=== PATIENT | female | born 1995 | race Caucasian/White ===

== ENCOUNTER 2020-10-24 12:24 | Outpatient (CLI) | payer OTHER ==
--- NOTE | 2020-10-24 16:33 | Ultrasound Report ---
PROCEDURE: OB F/U or Repeat INDICATIONS: SCREENING, GESTATIONAL DIABETES OUTSIDE/PRIOR DATING DATA: Last menstrual period (LMP): 04/03/2020. LMP-based estimated date of delivery (PATY): 01/08/2021. First dating scan (date and location): Reportedly this study represents the third OB ultrasound but t he earlier 2 studies are not available for review. TECHNIQUE: Real-time scanning was performed of the fetus, with image documentation and biometric measurements. Endovaginal scanning: Not needed COMPARISON: Not available FINDINGS: General: A single living intrauterine gestation is present. Presentation: Vertex Placenta: Placental position is posterior, without previa. Amniotic fluid index: 14.4 cm, normal for gestational age. heart rate: 149 beats per minute. Maternal cervical canal: 4.7 cm long; normal length is 2.5 cm or more. biometrics: Biparietal diameter: 7.2 cm, 28 weeks 5 days Head circumference: 25.1 cm, 27 weeks 1 day Abdominal circumference: 23.2 cm, 27 weeks 4 days Femur length: 5.0 cm, 26 weeks 5 days Estimated gestational age from initial scan: 26 weeks 6 days, reportedly. Composite gestational age from present scan: 27 weeks 4 days Estimated weight and percentile: 1051 g, 55th percentile Measurement variability in biometric dating: +/- 10 days from 12-20 weeks gestation, +/- 2 weeks from 20-30 weeks gestation, +/- 3 weeks at 30 weeks gestation or more. Other: Not applicable. IMPRESSION: Lead to prior OB ultrasound studies have been performed for this , but the exam inations are not available for review. Current estimated weight is at the 55th percentile for r eported gestational age, normal amniotic fluid volume. Vertex presentation, posterior placenta, mater nal cervical length appears normal. Reviewed by: Lino Duckworth MD on 10/24/2020 4:32 PM PDT Approved by: Lino Duckworth MD on 10/24/2020 4:32 PM PDT Station ID: [id number]
== END 2020-10-24 12:25 | disposition home or self-care (01) ==
LOC: DI 12:24
PROVIDERS: ATTEND Obstetrics & Gynecology
DX: O24.410 Gestational diabetes mellitus in pregnancy, diet controlled (principal); Z36.89 Encounter for other specified antenatal screening; Z3A.27 27 weeks gestation of pregnancy

== ENCOUNTER 2020-11-04 08:00 | Outpatient (CLI) | payer OTHER | END 2020-11-04 23:59 | disposition home or self-care (01) | LOC: LAB.WC 08:00 | PROVIDERS: ATTEND Obstetrics & Gynecology | DX: R30.0 Dysuria (principal) | CPT/HCPCS: 87086 ==

== ENCOUNTER 2020-12-16 07:00 | Outpatient (CLI) | payer OTHER | END 2020-12-16 23:59 | disposition home or self-care (01) | LOC: LAB.R 07:00 | PROVIDERS: ATTEND Obstetrics & Gynecology | DX: O24.410 Gestational diabetes mellitus in pregnancy, diet controlled (principal); O09.93 Supervision of high risk pregnancy, unspecified, third trimester; Z36.85 Encounter for antenatal screening for Streptococcus B | CPT/HCPCS: 82731; 87797 ==

== ENCOUNTER 2020-12-16 10:17 | Outpatient (CLI) | payer OTHER ==
[2020-12-16 10:34] VITALS: BP 125/73
[2020-12-16] MEDS ORDERED: TERBUTALINE 1 MG/ML VIAL SUBQ ONE (14:28)
[2020-12-16 15:11] LABS: BILIRUBIN,URINE NEGATIVE (NEGATIVE); GLUCOSE, URINE (UA) NEGATIVE (NEGATIVE); KETONES,URINE (UA) NEGATIVE (NEGATIVE); LEUKOCYTE ESTERASE, URINE NEGATIVE (NEGATIVE); NITRITE,URINE NEGATIVE (NEGATIVE); OCCULT BLOOD,URINE NEGATIVE (NEGATIVE); PROTEIN,URINE NEGATIVE (NEGATIVE); UROBILINOGEN,URINE 0.2 (NORMAL) E.U./dL (NORMAL)
[2020-12-16 15:16] LABS: CLARITY,URINE CLEAR (CLEAR)
[2020-12-16 15:18] LABS: BACTERIA,URINE None Seen /HPF (None Seen); RBC,URINE 0-5 /HPF (0-5); SQUAMOUS EPITHELIAL CELL,UR RARE Squamous (<= Few); WBC,URINE 0-3 /HPF (0-5)
--- NOTE | 2021-01-05 21:19 | PROCEDURE REPORT ---
- HPI Diagnosis/Indication for NST: labor Current EDU 01/24/21 Gestation 34 Weeks and 3 Days 1 Para 0 Vital Signs Temperature 98.7 F 12/16/20 10:31 Heart Rate 100 12/16/20 10:31 Respiratory Rate 18 12/16/20 10:31 Blood Pressure 125/73 12/16/20 10:31 O2 Saturation 99 12/16/20 10:31 Temperature 98.7 F 12/16/20 10:31 Heart Rate 100 12/16/20 10:31 Respiratory Rate 18 12/16/20 10:31 Blood Pressure 125/73 12/16/20 10:31 O2 Saturation 99 12/16/20 10:31 - NST Procedure NST Procedure Start Date 12/16/20 Start Time 10:30 Vibroacoustic Stimulation Used Yes EFM 135 min/mod chalino 15x15 accels initial decels, with 20 minutes of Cat I tracing TOCO: irreg - Results and Plan Findings/Impression: 25 yo at 34+3 wga here with contractions Neg FFN GBS collected UA wnl Given terbutaline 0.25 mg SC x1 Contractions slowed Cat I tracing Routine warning signs reviewed Discharged to home Patient was seen by provider DOS 12/16/20 NST read 12/16/20
== END 2020-12-16 16:00 | disposition home or self-care (01) ==
LOC: WFO 10:17 → FBP 10:20 → WFO 16:00
PROVIDERS: ATTEND Obstetrics & Gynecology
DX: O60.03 Preterm labor without delivery, third trimester (principal); O24.410 Gestational diabetes mellitus in pregnancy, diet controlled; O09.93 Supervision of high risk pregnancy, unspecified, third trimester; Z36.85 Encounter for antenatal screening for Streptococcus B; Z3A.34 34 weeks gestation of pregnancy
CPT/HCPCS: 59025; 81001; 82731; 87086; 87797; 96372; 99213; 99214

== ENCOUNTER 2020-12-16 17:04 | Outpatient (CLI) | payer OTHER ==
--- NOTE | 2020-12-19 12:47 | Ultrasound Report ---
PROCEDURE: OB F/U or Repeat INDICATIONS: GESTATIONAL DIABETES OUTSIDE/PRIOR DATING DATA: Last menstrual period (LMP): 04/03/2021. LMP-based estimated date of delivery (PATY): 01/08/2021. First dating scan (date and location): Not available. Estimated date of delivery (PATY) from first dating scan: Not available. The below data below was generated using the provider stated PATY of 01/24/2021 TECHNIQUE: Real-time scanning was performed of the fetus, with image documentation and biometric measurements. Endovaginal scanning: not indicated COMPARISON: 10/24/2020 and outside study report dated 09/05/2020. FINDINGS: General: A single living intrauterine gestation is present. Presentation: Vertex Placenta: Placental position is posterior, without previa. Amniotic fluid index: 18.2 cm, normal and greater than 50% for gestational age. Largest pocket measu res 5.9 cm. heart rate: 148 beats per minute. Maternal cervical canal: Not evaluated. biometrics: Biparietal diameter: 9.2 cm, 37 weeks, 2 days Head circumference: 32.4 cm, 36 weeks, 5 days Abdominal circumference: 33.2 cm, 37 weeks, 1 day Femur length: 6.9 cm, 35 weeks, 1 day Estimated gestational age from initial scan: 34 weeks, 3 days Composite gestational age from present scan: 36 weeks, 6 days Estimated weight and percentile: 2986 g, which is at 95th percentile. Measurement variability in biometric dating: +/- 10 days from 12-20 weeks gestation, +/- 2 weeks from 20-30 weeks gestation, +/- 3 weeks at 30 weeks gestation or more. Other: Daily at bedtime, stomach, bilateral kidneys and urinary bladder are visualized and are within normal limits. IMPRESSION: 1. Single live intrauterine with fetus in vertex presentation. heart rate is 1 48 bpm . Normal amount of amniotic fluid greater than 50%. 2. Estimated weight is 2986 g which is at 95th percentile. Reviewed by: Andre Robert MD on 12/19/2020 12:46 PM PDT Approved by: Andre Robert MD on 12/19/2020 12:46 PM PDT Station ID: [id number]
== END 2020-12-16 17:05 | disposition home or self-care (01) ==
LOC: DI 17:04
PROVIDERS: ATTEND Obstetrics & Gynecology
DX: O24.410 Gestational diabetes mellitus in pregnancy, diet controlled (principal)

== ENCOUNTER 2020-12-25 15:04 | Outpatient (CLI) | payer OTHER ==
[2020-12-26 12:49] LABS: HEPATITIS C ANTIBODY NON-REACTIVE (NON-REACTIVE)
== END 2020-12-25 15:05 | disposition home or self-care (01) ==
LOC: LAB 15:04
PROVIDERS: ATTEND Obstetrics & Gynecology
DX: Z36.89 Encounter for other specified antenatal screening (principal); O24.410 Gestational diabetes mellitus in pregnancy, diet controlled
CPT/HCPCS: 36415; 86803; 86850

== ENCOUNTER 2021-01-06 10:38 | Outpatient (CLI) | payer OTHER ==
[2021-01-06 11:02] VITALS: BP 130/85
[2021-01-06 12:10] LABS: RUPTURE OF MEMBRANES PLUS NEGATIVE (NEGATIVE)
--- NOTE | 2021-01-06 23:56 | PROCEDURE REPORT ---
- HPI Diagnosis/Indication for NST: Other (LABOR ASSESSMENT) Current EDU 01/24/21 Gestation 37 Weeks and 3 Days 1 Para 0 Vital Signs Temperature 98.6 F 01/06/21 10:51 Heart Rate 101 H 01/06/21 10:51 Respiratory Rate 19 01/06/21 10:51 Blood Pressure 130/85 H 01/06/21 10:51 O2 Saturation 99 01/06/21 10:51 Temperature 98.6 F 01/06/21 10:51 Heart Rate 101 H 01/06/21 10:51 Respiratory Rate 19 01/06/21 10:51 Blood Pressure 130/85 H 01/06/21 10:51 O2 Saturation 99 01/06/21 10:51 - Results and Plan Findings/Impression: 25 yo at 37+3 here for rule out rupture of membranes Reported gush of fluid this am. No further LOF. Intermittent CTX. + FM. No VB ROM+ neg Declines SVE Cat I tracing Routine OB FU Discharge instructions given
== END 2021-01-06 13:00 | disposition home or self-care (01) ==
LOC: WFO 10:38 → FBP 10:59 → WFO 13:00
PROVIDERS: ATTEND Obstetrics & Gynecology
DX: O24.419 Gestational diabetes mellitus in pregnancy, unspecified control (principal); Z3A.37 37 weeks gestation of pregnancy; O99.891 Other specified diseases and conditions complicating pregnancy; N89.8 Other specified noninflammatory disorders of vagina
CPT/HCPCS: 84112; 99214

== ENCOUNTER 2021-01-06 16:13 | Outpatient (CLI) | payer OTHER ==
--- NOTE | 2021-01-07 18:50 | Ultrasound Report ---
PROCEDURE: OB Limited INDICATIONS: GESTATIONAL DIABETES OUTSIDE/PRIOR DATING DATA: Last menstrual period (LMP): 04/03/2021. LMP-based estimated date of delivery (PATY): 01/08/2021. First dating scan (date and location): None available. Estimated date of delivery (PATY) from first dating scan: Not available. The below data below was generated using the provider stated PATY of 01/24/2021 TECHNIQUE: Real-time scanning was performed of the fetus, with image documentation. COMPARISON: 12/16/2020 FINDINGS: A single living intrauterine gestation is present. Presentation: Vertex Placenta: Placental position is posterior, without previa. Amniotic fluid index: 22.5 cm, 50-95% for gestational age. Largest pocket is 7.8 cm. heart rate: 143 beats per minutes. Maternal cervical canal: 3.2 cm long; normal length is 2.5 cm or more. Estimated gestational age from provider input: 37 weeks 3 days. IMPRESSION: 1. Single living late third trimester intrauterine . 2. Fluid measurement at the upper limits of normal. Reviewed by: Erik Abdi MD on 01/07/2021 5:48 PM LORENZA Approved by: Erik Abdi MD on 01/07/2021 5:48 PM LORENZA Station ID: [id number]
== END 2021-01-06 16:14 | disposition home or self-care (01) ==
LOC: DI 16:13
PROVIDERS: ATTEND Obstetrics & Gynecology
DX: O24.419 Gestational diabetes mellitus in pregnancy, unspecified control (principal); Z3A.37 37 weeks gestation of pregnancy

== ENCOUNTER 2021-01-08 08:00 | Outpatient (CLI) | payer OTHER | END 2021-01-08 23:59 | disposition home or self-care (01) | LOC: LAB.WC 08:00 | PROVIDERS: ATTEND Obstetrics & Gynecology | DX: O24.419 Gestational diabetes mellitus in pregnancy, unspecified control (principal) | CPT/HCPCS: 87797 ==

== ENCOUNTER 2021-01-08 19:42 | Inpatient (IN) | payer OTHER ==
[2021-01-08 20:35] LABS: RUPTURE OF MEMBRANES PLUS POSITIVE (NEGATIVE)
[2021-01-08] MEDS ORDERED: OXYTOCIN 10 UNIT/ML VIAL IM PRN (20:38)
[2021-01-08] MEDS ORDERED: TRANEXAMIC ACID IN NACL 1,000 MG/100 ML BAG IV PRN (20:38)
[2021-01-08] MEDS ORDERED: METHYLERGONOVINE 0.2 MG/ML VIAL IM PRN (20:38)
[2021-01-08] MEDS ORDERED: LIDOCAINE-MPF 1% 30 ML VIAL ID PRN (20:38)
[2021-01-08] MEDS ORDERED: miSOPROStoL 200 MCG TABLET BC PRN (20:38)
[2021-01-08] MEDS ORDERED: OXYTOCIN/SODIUM CHLORIDE 500 ML IV PRN (20:38)
[2021-01-08] MEDS ORDERED: SODIUM CHLORIDE FLUSH 0.9% 10 ML SYRINGE IVP PRN ×2 (20:38→22:53)
[2021-01-08] MEDS ORDERED: CARBOPROST TROMETHAMINE 250 MCG/ML AMP IM PRN (20:38)
[2021-01-08 21:35] LABS: BASOPHILS % (AUTO) 0.3 %; EOSINOPHILS % (AUTO) 0.3 %; HCT - HEMATOCRIT 41.2 % (37.0-47.0); LYMPHOCYTES # (AUTO) 2.6 10^3/uL (1.5-3.5); LYMPHOCYTES % (AUTO) 26.3 %; MEAN CORPUSCULAR HEMOGLOBIN 30.1 pg (27.0-31.0); MEAN CORPUSCULAR VOLUME 88.6 fL (81.0-99.0); MEAN PLATELET VOLUME 10.9 fL (7.9-10.8); MONOCYTES # (AUTO) 0.7 10^3/uL (0.0-1.0); MONOCYTES % (AUTO) 7.3 %; NEUTROPHILS # (AUTO) 6.5 10^3/uL (1.5-6.6); NRBC ABSOLUTE COUNT (AUTO) 0.04 x10^3/uL; NUCLEATED RED BLOOD CELLS AUTO 0.4 /100WBC; PLT - PLATELET COUNT 235 10^3/uL (130-450); RED BLOOD COUNT 4.65 10^6/uL (4.20-5.40)
[2021-01-08] MEDS: LACTATED RINGERS 1,000 ML IV SCH ×2 (22:05→23:00)
[2021-01-08] MEDS ORDERED: ONDANSETRON 4 MG/2 ML VIAL IVP PRN (22:41)
[2021-01-08] MEDS ORDERED: fentaNYL 100 MCG/2 ML VIAL IVP PRN (22:41)
[2021-01-08] MEDS ORDERED: OXYTOCIN/SODIUM CHLORIDE 500 ML IV SCH (23:00)
[2021-01-08] MEDS ORDERED: LACTATED RINGERS 1,000 ML IV SCH (23:00)
[2021-01-08] MEDS ORDERED: LABETALOL 20 MG/4 ML SYRINGE IVP PRN ×3 (23:08)
[2021-01-08] MEDS ORDERED: NIFEdipine 10 MG CAPSULE PO PRN (23:08)
[2021-01-08] MEDS ORDERED: METOCLOPRAMIDE 10 MG/2 ML VIAL IVP PRN (23:08)
[2021-01-08] MEDS ORDERED: TERBUTALINE 1 MG/ML VIAL SUBQ PRN (23:08)
[2021-01-08] MEDS ORDERED: hydrALAZINE INJ 20 MG/ML VIAL IVP PRN ×2 (23:08)
[2021-01-08] MEDS ORDERED: ACETAMINOPHEN 325 MG TABLET PO PRN (23:12)
[2021-01-08] MEDS ORDERED: CALCIUM CARBONATE CHEW 500 MG TABLET PO PRN (23:12)
[2021-01-08] MEDS ORDERED: diphenhydrAMINE 25 MG CAPSULE PO PRN (23:13)
--- NOTE | 2021-01-08 23:16 | HISTORY & PHYSICAL EXAMINATION ---
Admit History - Visit Reason Visit Reason: Membranes rupture - : 1 Parity: 0 Risk/History: positive: Gestational diabetes Complications This : positive: Gestational diabetes Smoking Status: Never smoker - Mother's Labs Mother's Blood Type: positive: O Mother's RH: positive: Positive GBS: positive: Group B Step Negative Rubella Status: positive: Immune - Other Maternal History Other Maternal History: Patient is a 25 yo at 37+5 wga who presents with ruptured membranes and early labor. Reports passage of fluid per vagina at approximately 5:00 pm today. No VB. O ccasional contractions. Checked in clinic today and was closed. About 3 cm at time of admit per RN exam. Nitrazine and ROM+ positive. complicated by GDM; currently on metformin. Family hx of pre-eclampsia and family hx of early deliveries. Taking ASA given family hx of pre-E. No other concerns. Endorses FM. Occasional CTX. No VB. On going LOF. US on 12/17/20 showed EFW 2986 and 95%ile. PNC: Transfer from [facility] to [facility] at 25 weeks. LMP: 04/03/2021 PATY by LMP: 01/08/2021 Initial U/S: @ 8.3wks NOT c/w LMP dating. PATY 01/24/2021 by U/S FINAL PATY: 01/24/2021 by 8.3wk U/S O pos/Rubella immune VZV: Immune Genetic testing: CF negative, SMA negative; AFP Tetra negative FAS: 09/05/2020 WNL with the exception of incomplete views of spine. Posterior placenta, no previa. MICHAEL WNL. 3VC. Size c/w dating (EFW 65%) Glucola: Early 1 hour 149, 3 hour 94, 198, 162, 132 Influenza: TDAP 12/03/2020 GBS neg HSV: Denies Breast pump Rx Given MOD:Anticipate pp contraception: TBD PMH: Gestational diabetes PSH: none FAM HX: DM: mother, father, sisters with GDM HTN: father/mother Thyroid Dz: Mother ALL: mushrooms MEDS: metformin 500 mg po bid ASA 81 mg po daily PNV Meds/Allgy - Home Medications Home Medications: Ambulatory Orders Medication Instructions Recorded Confirmed Aspirin [Aspirin EC] 81 mg PO DAILY 01/01/21 01/08/21 Pnv No.95/Ferrous Fum/Folic AC 1 tab PO DAILY 01/01/21 01/08/21 [ Caplet] metFORMIN [Glucophage] 500 mg PO BIDWM 01/01/21 01/08/21 - Allergies Allergies/Adverse Reactions: Allergies Allergy/AdvReac Type Severity Reaction Status Date / Time mushroom Allergy Unknown Verified 01/08/21 20:33 Review of Systems - Other Findings Other Findings: As per HPI, otherwise remaining systems are negative. Physical - Abdominal Exam Vital Signs: Temp Pulse Resp BP Pulse Ox 208.4 F H 89 16 128/84 H 99 01/08/21 21:41 01/08/21 20:21 01/08/21 20:21 01/08/21 20:21 01/08/21 20:21 Contraction Frequency (min/apart): intermittent - Monitoring Heart Rate Baseline: 140 min/mod 10x10 accels no decels Strip Review: positive: Category I - Presentation Presentation: positive: Vertex - Vaginal Exam Membranes: positive: Membranes ruptured Dilation (in cm): 2.5 Effacement (%): 80 Station: positive: -3 Cervical Position: positive: Posterior - Speculum Exam Findings: positive: Gross leak, Nitrazine, Other (ROM + positive) - Other Notes Labor Progress Note/Additional Text: GEN: NAD HEAD: NCAT EYES: No scleral icterus or conjunctival injection CV: RR RESP: CTAB, normal effort ABD: gravid, S&NT/ND PSYCH: appropriate affect NEURO: alert and oriented, normal gait and coordination EXT: WWP Vertex by bedside US Plan for Labor - Plan For Labor Plan for Labor: SROM: intermittent contractions with more than 5 horus post rupture -Recommend pitocin augmentation. Patient is in agreement. -GBS negative; abx not indicated -confirmed vertex with bedside us. PAIN: Ok with epidural -Reviewed use of fentanyl: ok at less than 7 cm dilation with max cumulative dose of 200 mcg -Nitrous oxide as desired -Epidural as desired FWB: Vertex, GBS neg, EFW 95%ile, Cat I tracing -Cont EFM GDM: POC glucose -SSI for BG above 140 Inpatient care
[2021-01-09] MEDS ORDERED: LACTATED RINGERS 1,000 ML IV ONE (00:25)
[2021-01-09] MEDS ORDERED: SODIUM CHLORIDE FLUSH 0.9% 10 ML SYRINGE IVP SCH (01:00)
[2021-01-09] MEDS: FAMOTIDINE 20 MG TABLET PO SCH ×3 (02:02→22:26)
[2021-01-09] MEDS: SODIUM CHLORIDE FLUSH 0.9% 10 ML SYRINGE IVP SCH ×3 (02:05→20:38)
[2021-01-09] MEDS: fentaNYL 100 MCG/2 ML VIAL IVP PRN ×4 (06:34→13:55)
[2021-01-09] MEDS: LACTATED RINGERS 1,000 ML IV SCH ×3 (07:00→20:38)
[2021-01-09 07:03] LABS: BASOPHILS % (AUTO) 0.2 %; EOSINOPHILS # (AUTO) 0.1 10^3/uL (0.0-0.7); EOSINOPHILS % (AUTO) 0.5 %; HCT - HEMATOCRIT 38.4 % (37.0-47.0); HGB - HEMOGLOBIN 13.3 g/dL (12.0-16.0); LYMPHOCYTES # (AUTO) 2.1 10^3/uL (1.5-3.5); LYMPHOCYTES % (AUTO) 22.8 %; MEAN CORPUSCULAR HEMOGLOBIN 30.5 pg (27.0-31.0); MEAN CORPUSCULAR HGB CONC 34.6 g/dL (32.0-36.0); MEAN CORPUSCULAR VOLUME 88.1 fL (81.0-99.0); MEAN PLATELET VOLUME 10.8 fL (7.9-10.8); MONOCYTES # (AUTO) 0.6 10^3/uL (0.0-1.0); MONOCYTES % (AUTO) 6.3 %; NEUTROPHILS # (AUTO) 6.5 10^3/uL (1.5-6.6); NEUTROPHILS % (AUTO) 69.6 %; NRBC ABSOLUTE COUNT (AUTO) 0.02 x10^3/uL; NUCLEATED RED BLOOD CELLS AUTO 0.2 /100WBC; PLT - PLATELET COUNT 219 10^3/uL (130-450); RED BLOOD COUNT 4.36 10^6/uL (4.20-5.40); RED CELL DISTRIBUTION WIDTH 13.8 % (12.0-15.0); WHITE BLOOD COUNT 9.3 x10^3/uL (4.8-10.8)
[2021-01-09 07:12] LABS: ALBUMIN 2.7 g/dL (3.2-5.5); ALBUMIN/GLOBULIN RATIO 0.8 (1.0-2.2); BILIRUBIN,TOTAL 0.7 mg/dL (0.2-1.0); CALCIUM 8.8 mg/dL (8.5-10.3); CREATININE 0.5 mg/dL (0.4-1.0); POTASSIUM 3.6 mmol/L (3.5-5.0); TOTAL PROTEIN 6.1 g/dL (6.7-8.2)
--- NOTE | 2021-01-09 08:57 | PROVIDER PROGRESS NOTE ---
Subjective - Prog Note Date Prog Note Date: 01/09/21 Prog Note Time: 08:54 - Subjective Subjective: Patient off nitrous and using fentanyl Declines epidural at this time Pitocin at 12 mU/min EFM 145 min to mod chalino 10x10 accels, occ decels TOCO Q2-5 min SVE 5/70/-2/posterior/bulging forebag Cat I with intermittent period of Cat II tracing BG 205 this am Starting SSI on low dose Signing out to Dr. Staples at 8:00 Objective - Vital Signs/Intake & Output Vital Signs: Vital Signs x48h Temp Pulse Resp BP Pulse Ox 01/09/21 07:25 98.6 F 86 20 131/77 H 99 01/09/21 07: 98.2 F Intake & Output: Intake & Output 01/06/21 01/07/21 01/08/21 01/09/21 23:59 23:59 23:59 23:59 Intake Total 2116.75 1208 Output Total 400 1075 Balance 1716.75 133 - Lab Results Fish Bones: 01/09/21 06:54 01/09/21 06:54 Other Labs: Lab Results x24hrs 01/09/21 01/09/21 01/09/21 Range/Units 08:44 06:54 06:54 WBC 9.3 (4.8-10.8) x10^3/uL RBC 4.36 (4.20-5.40) 10^6/uL Hgb 13.3 (12.0-16.0) g/dL Hct 38.4 (37.0-47.0) % MCV 88.1 (81.0-99.0) fL MCH 30.5 (27.0-31.0) pg MCHC 34.6 (32.0-36.0) g/dL RDW 13.8 (12.0-15.0) % Plt Count 219 (130-450) 10^3/uL MPV 10.8 (7.9-10.8) fL Neut # (Auto) 6.5 (1.5-6.6) 10^3/uL Lymph # (Auto) 2.1 (1.5-3.5) 10^3/uL Spencer # (Auto) 0.6 (0.0-1.0) 10^3/uL Eos # (Auto) 0.1 (0.0-0.7) 10^3/uL Baso # (Auto) 0.0 (0.0-0.1) 10^3/uL Absolute Nucleated RBC 0.02 x10^3/uL Nucleated RBC % 0.2 /100WBC Sodium 130 L (135-145) mmol/L Potassium 3.6 (3.5-5.0) mmol/L Chloride 101 (101-111) mmol/L Carbon Dioxide 18 L (21-32) mmol/L Anion Gap 11.0 (6-13) BUN 10 (6-20) mg/dL Creatinine 0.5 (0.4-1.0) mg/dL Estimated GFR (MDRD) 153 (>89) Glucose 162 H (70-100) mg/dL POC Whole Bld Glucose 205 H (70 - 100) mg/dL Calcium 8.8 (8.5-10.3) mg/dL Total Bilirubin 0.7 (0.2-1.0) mg/dL AST 44 H (10-42) IU/L ALT 35 (10-60) IU/L Alkaline Phosphatase 150 H (42-121) IU/L Total Protein 6.1 L (6.7-8.2) g/dL Albumin 2.7 L (3.2-5.5) g/dL Globulin 3.4 (2.1-4.2) g/dL Albumin/Globulin Ratio 0.8 L (1.0-2.2) Membranes Rupture (NEGATIVE) Blood Type Antibody Screen 01/09/21 01/09/21 01/08/21 Range/Units 04:35 01:10 22:31 WBC (4.8-10.8) x10^3/uL RBC (4.20-5.40) 10^6/uL Hgb (12.0-16.0) g/dL Hct (37.0-47.0) % MCV (81.0-99.0) fL MCH (27.0-31.0) pg MCHC (32.0-36.0) g/dL RDW (12.0-15.0) % Plt Count (130-450) 10^3/uL MPV (7.9-10.8) fL Neut # (Auto) (1.5-6.6) 10^3/uL Lymph # (Auto) (1.5-3.5) 10^3/uL Spencer # (Auto) (0.0-1.0) 10^3/uL Eos # (Auto) (0.0-0.7) 10^3/uL Baso # (Auto) (0.0-0.1) 10^3/uL Absolute Nucleated RBC x10^3/uL Nucleated RBC % /100WBC Sodium (135-145) mmol/L Potassium (3.5-5.0) mmol/L Chloride (101-111) mmol/L Carbon Dioxide (21-32) mmol/L Anion Gap (6-13) BUN (6-20) mg/dL Creatinine (0.4-1.0) mg/dL Estimated GFR (MDRD) (>89) Glucose (70-100) mg/dL POC Whole Bld Glucose 119 H 127 H 103 H (70 - 100) mg/dL Calcium (8.5-10.3) mg/dL Total Bilirubin (0.2-1.0) mg/dL AST (10-42) IU/L ALT (10-60) IU/L Alkaline Phosphatase (42-121) IU/L Total Protein (6.7-8.2) g/dL Albumin (3.2-5.5) g/dL Globulin (2.1-4.2) g/dL Albumin/Globulin Ratio (1.0-2.2) Membranes Rupture (NEGATIVE) Blood Type Antibody Screen 01/08/21 01/08/21 01/08/21 Range/Units 21:15 21:15 20:13 WBC 10.0 (4.8-10.8) x10^3/uL RBC 4.65 (4.20-5.40) 10^6/uL Hgb 14.0 (12.0-16.0) g/dL Hct 41.2 (37.0-47.0) % MCV 88.6 (81.0-99.0) fL MCH 30.1 (27.0-31.0) pg MCHC 34.0 (32.0-36.0) g/dL RDW 14.0 (12.0-15.0) % Plt Count 235 (130-450) 10^3/uL MPV 10.9 H (7.9-10.8) fL Neut # (Auto) 6.5 (1.5-6.6) 10^3/uL Lymph # (Auto) 2.6 (1.5-3.5) 10^3/uL Spencer # (Auto) 0.7 (0.0-1.0) 10^3/uL Eos # (Auto) 0.0 (0.0-0.7) 10^3/uL Baso # (Auto) 0.0 (0.0-0.1) 10^3/uL Absolute Nucleated RBC 0.04 x10^3/uL Nucleated RBC % 0.4 /100WBC Sodium (135-145) mmol/L Potassium (3.5-5.0) mmol/L Chloride (101-111) mmol/L Carbon Dioxide (21-32) mmol/L Anion Gap (6-13) BUN (6-20) mg/dL Creatinine (0.4-1.0) mg/dL Estimated GFR (MDRD) (>89) Glucose (70-100) mg/dL POC Whole Bld Glucose (70 - 100) mg/dL Calcium (8.5-10.3) mg/dL Total Bilirubin (0.2-1.0) mg/dL AST (10-42) IU/L ALT (10-60) IU/L Alkaline Phosphatase (42-121) IU/L Total Protein (6.7-8.2) g/dL Albumin (3.2-5.5) g/dL Globulin (2.1-4.2) g/dL Albumin/Globulin Ratio (1.0-2.2) Membranes Rupture POSITIVE A (NEGATIVE) Blood Type O POSITIVE Antibody Screen NEGATIVE
[2021-01-09] MEDS: INSULIN ASPART 300 UNIT/3 ML PEN SUBQ SCH ×4 (09:32→16:18)
--- NOTE | 2021-01-09 11:05 | PROVIDER PROGRESS NOTE ---
Labor Progress Note - Uterine Monitoring Contraction Frequency (min/apart): 4 Contraction Intensity: positive: Moderate to strong - Monitoring Monitor Mode: positive: External ultrasound Heart Rate Baseline: 135 Heart Rate Variability: positive: Moderate (6-25 bmp) Accelerations: positive: Present, 15x15 Decelerations: positive: None Strip Review: positive: Category I - Vaginal Exam Dilation (in cm): 6 Effacement (%): 100% Station: Ballotable Cervical Position: Midposition - Labor Progress Note Labor Progress Note/Additional Text: Pt has GDM moderate control with metformin and diet. difficulty with getting dietary consult. SROM with for bag evolving PreE Cover Blood sugar with sliding insulin. Continue Pit Epidural urine PC AROM fore bag when able
[2021-01-09 11:18] LABS: BASOPHILS % (AUTO) 0.2 %; EOSINOPHILS % (AUTO) 0.4 %; HCT - HEMATOCRIT 39.2 % (37.0-47.0); HGB - HEMOGLOBIN 13.4 g/dL (12.0-16.0); LYMPHOCYTES # (AUTO) 2.4 10^3/uL (1.5-3.5); LYMPHOCYTES % (AUTO) 23.3 %; MEAN CORPUSCULAR HEMOGLOBIN 30.5 pg (27.0-31.0); MEAN CORPUSCULAR HGB CONC 34.2 g/dL (32.0-36.0); MEAN CORPUSCULAR VOLUME 89.1 fL (81.0-99.0); MEAN PLATELET VOLUME 10.6 fL (7.9-10.8); MONOCYTES # (AUTO) 0.7 10^3/uL (0.0-1.0); MONOCYTES % (AUTO) 7.3 %; NEUTROPHILS # (AUTO) 6.9 10^3/uL (1.5-6.6); NEUTROPHILS % (AUTO) 68.2 %; NRBC ABSOLUTE COUNT (AUTO) 0.02 x10^3/uL; NUCLEATED RED BLOOD CELLS AUTO 0.2 /100WBC; PLT - PLATELET COUNT 226 10^3/uL (130-450); WHITE BLOOD COUNT 10.2 x10^3/uL (4.8-10.8)
[2021-01-09 11:38] LABS: ALBUMIN 2.8 g/dL (3.2-5.5); ALBUMIN/GLOBULIN RATIO 0.8 (1.0-2.2); BILIRUBIN,TOTAL 0.6 mg/dL (0.2-1.0); CREATININE 0.7 mg/dL (0.4-1.0); POTASSIUM 3.8 mmol/L (3.5-5.0); TOTAL PROTEIN 6.1 g/dL (6.7-8.2); URIC ACID 5.5 mg/dL (2.6-7.2)
[2021-01-09] MEDS ORDERED: ROPIVACAINE 0.2% 200 MG/100 ML BAG EP ONE (14:48)
--- NOTE | 2021-01-09 14:51 | PROVIDER PROGRESS NOTE ---
Labor Progress Note - Uterine Monitoring Uterine Monitoring Mode: positive: External toco Contraction Frequency (min/apart): 4-5 Contraction Intensity: positive: Moderate to strong Uterine Resting Tone: positive: Soft - Monitoring Monitor Mode: positive: External ultrasound Heart Rate Baseline: 155 Heart Rate Variability: positive: Minimal (0-5 bpm) Accelerations: positive: Absent Decelerations: positive: None Strip Review: positive: Category II - Vaginal Exam Dilation (in cm): 7 Effacement (%): 80 Station: -2 Cervical Position: Midposition - Labor Progress Note Labor Progress Note/Additional Text: Last BS following lunch was 214 Pre E BP 127/70's, platelets stable AST 44 CX 7 cm/80%/ -2 vtx Plan Epidural advance Pit follow monitor
[2021-01-09] MEDS ORDERED: NALBUPHINE 10 MG/ML AMP IVP PRN (15:40)
[2021-01-09] MEDS ORDERED: ROPIVACAINE 0.2% 200 MG/100 ML BAG EP PRN (15:40)
[2021-01-09] MEDS ORDERED: ONDANSETRON 4 MG/2 ML VIAL IVP PRN (15:40)
[2021-01-09] MEDS ORDERED: NALOXONE 0.4 MG/ML VIAL IVP PRN (15:40)
[2021-01-09] MEDS ORDERED: METOCLOPRAMIDE 10 MG/2 ML VIAL IVP PRN (15:40)
[2021-01-09] MEDS ORDERED: diphenhydrAMINE INJ 50 MG/ML VIAL IVP PRN (15:40)
[2021-01-09] MEDS ORDERED: ePHEDrine 50 MG/ML VIAL IVP PRN (15:40)
--- NOTE | 2021-01-09 15:41 | ANESTHESIA PROCEDURE NOTE ---
Anesthesia Epidural Template - Patient Report Patient Reports: positive: Pain controlled - Plan Plan: positive: Continue current management
--- NOTE | 2021-01-09 16:18 | PROVIDER PROGRESS NOTE ---
Labor Progress Note - Uterine Monitoring Uterine Monitoring Mode: positive: External toco Contraction Frequency (min/apart): 4-5 Contraction Intensity: positive: Moderate to strong Uterine Resting Tone: positive: Soft - Monitoring Monitor Mode: positive: External ultrasound Heart Rate Baseline: 150 Heart Rate Variability: positive: Minimal (0-5 bpm) Accelerations: positive: Present, 15x15 Decelerations: positive: None Strip Review: positive: Category I - Vaginal Exam Dilation (in cm): 7-8 Effacement (%): 80% Station: -1 Cervical Position: Midposition - Labor Progress Note Labor Progress Note/Additional Text: DIFFICULTY WITH REACTIVITY. SLOW PROGRESS ADVANCED PIT TO 13
[2021-01-09 16:46] LABS: CREATININE,URINE 42.7 mg/dL; PROTEIN/CREATININE RATIO,URINE 0.8 (<=0.2)
[2021-01-09] MEDS ORDERED: IOVERSOL 320 100 ML VIAL IVP ONE ×2 (20:55→22:42)
--- NOTE | 2021-01-09 21:35 | PROVIDER PROGRESS NOTE ---
Labor Progress Note - Uterine Monitoring Uterine Monitoring Mode: positive: External toco Contraction Frequency (min/apart): 4 Contraction Intensity: positive: Strong Uterine Resting Tone: positive: Soft - Monitoring Monitor Mode: positive: External ultrasound Heart Rate Baseline: 150 Heart Rate Variability: positive: Moderate (6-25 bmp) Accelerations: positive: Present, 15x15 Decelerations: positive: None Strip Review: positive: Category I - Vaginal Exam Dilation (in cm): 7 Effacement (%): 80% Station: -2 Cervical Position: Posterior - Labor Progress Note Labor Progress Note/Additional Text: Pt developed left sided chest pain . Worse with inhaliation and expiration. O2 sat 99-100. episode of maternal tachycardia. Pulse 115 now 96 EKG right heart strain. STAT CT ordered. Arrest of dilitation Discussed with MERCY and ZULAY.
--- NOTE | 2021-01-09 21:46 | CT Report ---
PROCEDURE: ANGIO CHEST W/WO INDICATIONS: Eval for PE CONTRAST: IV CONTRAST: Optiray 320 ml: 80 PO CONTRAST: *NO PO CONTRAST TECHNIQUE: After the administration of intravenous contrast, 2 mm thick sections acquired from the pulmonary api nirali to the posterior costophrenic angles. 3-dimensional maximum intensity projection (MIP) coronal a nd sagittal reformats were then acquired through the thorax. For radiation dose reduction, the follow ing was used: automated exposure control, adjustment of mA and/or kV according to patient size. COMPARISON: None. FINDINGS: Image quality: Excellent. Pulmonary arteries: Pulmonary arteries are normal in size, and demonstrate no intraluminal filling d efects to suggest central pulmonary embolism. Lungs and pleura: There are a few small clustered groundglass opacities within the right lower lobe. Mild dependent atelectasis is also present. No focal consolidation. No pleural effusions or pneumotho rax. Central and peripheral airways are patent. Mediastinum: Heart size is normal, without pericardial effusion. No mediastinal or hilar adenopathy . Thoracic aorta is normal in caliber and enhancement. Esophagus is normal in caliber, without hiat al hernia. Bones and chest wall: No suspicious bony lesions. Ribs and thoracic spine appear intact throughout. No axillary or supraclavicular adenopathy. Abdomen: Visualized upper abdomen demonstrates hypoattenuation of the liver consistent with fatty in filtration. IMPRESSION: 1. No evidence of pulmonary embolism. 2. Small clustered groundglass opacities within the right lower lobe likely represents a mild infecti ous or inflammatory process. Findings discussed with Dr. Staples on 01/09/2021 at 9:40 PM. Reviewed by: Camilo Reyes MD on 01/09/2021 9:44 PM PDT Approved by: Camilo Reyes MD on 01/09/2021 9:44 PM PDT Station ID: [id number]
--- NOTE | 2021-01-09 21:59 | CONSULTATION NOTE ---
Referring Provider Name of Referring Provider:: Dr Hardik Staples Consult Date: 01/09/21 Chief Complaint - Chief Complaint Chief Complaint: Pleuritic Chest pain during labor History of Present Illness - History Obtained From History obtained from: Dr Staples and the patient - History of Present Illness HPI Comment/Other: This is a 25-year-old female of descent who is 1 and currently in labor. She has gestational DM and currently was on metformin. There is a Family hx of pre-eclampsia and family hx of early deliveries. She was also ta trevon a baby ASA daily, given family hx of pre-eclampsia. Her labor arrested at 7 cm. She also started to have pleuritic chest pain in the left-central sternal area. Her OB, Dr. Staples contacted me, to help evaluate the current chest pain. She has just undergone a stat chest CT angio to rule out pulmonary embolism. The findings are that of no PE however she has groundglass opacities as well as atelectasis at the bases. She is not desaturating. The obstetric plan is for her to have approx in the next hour. History - Past Medical History Cardiovascular: reports: Hypertension (Pre-eclampsia) Respiratory: reports: Pneumonia Endocrine/Autoimmune: reports: Other (Gestational DM) - Family & Social History Living arrangement: At home Living Situation: With spouse/s.o. - Substance History Use: Uses substance without health or social issues: NONE - POLST Patient has POLST: No POLST Status: Full Code Meds/Allgy - Home Medications Home Medications: Ambulatory Orders Medication Instructions Recorded Confirmed Aspirin [Aspirin EC] 81 mg PO DAILY 01/01/21 01/08/21 Pnv No.95/Ferrous Fum/Folic AC 1 tab PO DAILY 01/01/21 01/08/21 [ Caplet] metFORMIN [Glucophage] 500 mg PO BIDWM 01/01/21 01/08/21 - Allergies Allergies/Adverse Reactions: Allergies Allergy/AdvReac Type Severity Reaction Status Date / Time mushroom Allergy Unknown Verified 01/08/21 20:33 Review of Systems - Cardiovascular Cariovascular: reports: Other (She reports having pleuritic chest pain on and off for many weeks ever since the [place] diagnosis of possible pneumonia. Also, she thinks she did not get antibiotic treatment for it.) - Respiratory Respiratory: reports: Pleuritic pain (She told Dr Staples (OB) that when she was in [place] in November she was diagnosed with pneumonia. 1 place said she was Covid positive then she had a repeat test and it was reported she was Covid negative. She told me that a pneumonia was never definite and that she did not get any antibiotic treatment.) - All Other Systems All Other Systems: reports: Reviewed and negative Exam - Vital Signs Vital Signs: Vital Signs x48h Temp 01/09/21 17:37 36.9 C - Physical Exam General Appearance: positive: No acute distress, Alert Eyes Bilateral: positive: Normal inspection, EOMI ENT: positive: ENT inspection nml, Pharynx nml, No signs of dehydration Neck: positive: Nml inspection, No JVD Respiratory: positive: No respiratory distress, Breath sounds nml Cardiovascular: positive: Regular rate & rhythm, No murmur Abdomen: positive: Non-tender Skin: positive: Warm, Dry Extremities: positive: No pedal edema Neurologic/Psychiatric: positive: Oriented x3 (Non-focal) Conclusion/Plan - Diagnosis Diagnosis: Pleuritic chest pain. Community-acquired pneumonia. Pre-eclampsia. Hyponatremia - Plan Plan: If she makes sputum, obtain a sputum sample for culture. If there is no cough or phlegm, no culture needed. Respiratory PCR for Covid and other viruses was ordered>>> results were neg. Obtain serum for IgG and IgM for SARS Covid virus to establish if she had old or recent infection. Begin empiric antibiotics for the abnormal chest x-ray findings, since this could be persistent or under-treated pneumonia: we will order IV ceftriaxone and IV Zithromax. These can be started after the fetus has been delivered. She should then go home with, or if here should get, Zithromax 500 mg for 2 more days. Depending on safety of the baby getting Ceftriaxone and Zithromax in breast milk, if the pt will breast feed, then the pt may need to pump and dump for several days. Please check with the Accounting Professional. Continue to monitor her oxygen level for desaturation. Oxygen will be ordered as needed. Her pleuritic pain can be managed with any pain medication that will be ordered by OB already. Preferably NSAID for its anti-inflammatory effect if there are no contraindications. Recommend 1 L of IV saline infused slowly over the next 12 to 24 hours to treat the hyponatremia. Follow her BMP and WBC daily. Thank you for allowing the Hospitalist team to participate in the care of your patient. - Lab Results Fish Bones: 01/09/21 11:10 01/09/21 11:19 - EKG Results EKG Interpreted Independently: Yes EKG Comparison: Old EKG unavailable EKG Findings: Normal sinus rhythm, rate 75, early R/S transition, no ST or T wave changes.
[2021-01-09] MEDS ORDERED: LIDOCAINE MPF 2%-EPI 1:200000 20 ML VIAL ONE (22:41)
[2021-01-09] MEDS ORDERED: OXYTOCIN 10 UNIT/ML VIAL ONE (22:42)
[2021-01-09] MEDS ORDERED: KETOROLAC 30 MG/ML VIAL ONE (22:42)
[2021-01-09] MEDS ORDERED: ePHEDrine 50 MG/ML VIAL IVP ONE (22:42)
[2021-01-09] MEDS ORDERED: ONDANSETRON 4 MG/2 ML VIAL ONE (22:42)
[2021-01-09] MEDS ORDERED: PHENYLEPHRINE 10 MG/ML VIAL ONE (22:42)
[2021-01-09] MEDS ORDERED: SODIUM CHLORIDE 0.9% 10 ML VIAL IVP ONE (22:44)
[2021-01-09] MEDS ORDERED: CARBOPROST TROMETHAMINE 250 MCG/ML AMP IM ONE ×2 (23:34→23:36)
[2021-01-09] MEDS ORDERED: miSOPROStoL 200 MCG TABLET ONE (23:35)
[2021-01-09] MEDS ORDERED: METHYLERGONOVINE 0.2 MG/ML VIAL ONE (23:36)
[2021-01-09 23:40] LABS: B. PARAPERTUSSIS- RESP PCR PAN NOT DETECTED; B. PERTUSSIS- RESP PCR PANEL NOT DETECTED; C. PNEUMONIAE- RESP PCR PANEL NOT DETECTED; CORONAVIRUS 229E-RESP PCR NOT DETECTED; CORONAVIRUS HKU1-RESP PCR NOT DETECTED; CORONAVIRUS NL63-RESP PCR NOT DETECTED; CORONAVIRUS OC43-RESP PCR NOT DETECTED; HUMAN METAPNEUMOVIRUS NOT DETECTED; INFLUENZA A- RESP PCR PANEL NOT DETECTED; INFLUENZA B - RESP PCR PANEL NOT DETECTED; M. PNEUMONIAE- RESP PCR PANEL NOT DETECTED; PARAINFLUENZA VIRUS 1 NOT DETECTED; PARAINFLUENZA VIRUS 2 NOT DETECTED; PARAINFLUENZA VIRUS 3 NOT DETECTED; PARAINFLUENZA VIRUS 4 NOT DETECTED; RHINOVIRUS/ENTEROVIRUS NOT DETECTED; RSV- RESP PCR PANEL NOT DETECTED; SARS-CoV-2 -RESP PCR PANEL NOT DETECTED
[2021-01-10] MEDS ORDERED: HYDROmorphone PCA 20MG/100ML IV PRN ×2 (00:35→04:30)
[2021-01-10] MEDS ORDERED: SODIUM CHLORIDE FLUSH 0.9% 10 ML SYRINGE IVP PRN (00:38)
--- NOTE | 2021-01-10 00:45 | ANESTHESIA ---
Pre-Anesthesia VS, & Labs - Diagnosis Diagnosis Pleuritic chest pain Community-acquired pneumonia Pre-eclampsia Hyponatremia active labor - Procedure labor epidural Vital Signs: Temp Pulse Resp BP Pulse Ox 36.9 C 86 20 131/77 H 99 01/09/21 17:37 01/09/21 07:25 01/09/21 07:25 01/09/21 07:25 01/09/21 07:25 Height: 5 ft 1 in Weight (kg): 84.368 kg Body Mass Index: 35.1 BMI Classification: Obese - NPO Other (NPO x2 hrs) - Is Patient ?: Yes - Lab Results Current Lab Results: Laboratory Tests 01/09/21 22:29: POC Whole Bld Glucose 101 H 01/09/21 20:00: POC Whole Bld Glucose 125 H 01/09/21 17:50: POC Whole Bld Glucose 96 01/09/21 15:51: POC Whole Bld Glucose 165 H 01/09/21 13:45: POC Whole Bld Glucose 214 H 01/09/21 11:19: Sodium 133 L, Potassium 3.8, Chloride 103, Carbon Dioxide 20 L, Anion Gap 10.0, BUN 11, Creatinine 0.7, Estimated GFR (MDRD) 104, Glucose 125 H, Uric Acid 5.5, Calcium 9.0, Total Bilirubin 0.6, AST 44 H, ALT 37, Alkaline Phosphatase 155 H, Total Protein 6.1 L, Albumin 2.8 L, Globulin 3.3, Albumin/Valeria bulin Ratio 0.8 L 01/09/21 11:10: WBC 10.2, RBC 4.40, Hgb 13.4, Hct 39.2, MCV 89.1, MCH 30.5, MCHC 34.2, RDW 14.0, Plt Count 226, MPV 10.6, Neut # (Auto) 6.9 H, Lymph # (Auto) 2.4, Rutherford # (Auto) 0.7, Eos # (Auto) 0.0, Baso # (Auto) 0.0, Absolute Nucleated RBC 0.02, Nucleated RBC % 0.2 01/09/21 11:00: Blood Type Recheck O POSITIVE 01/09/21 10:56: POC Whole Bld Glucose 131 H 01/09/21 08:44: POC Whole Bld Glucose 205 H 01/09/21 06:54: Sodium 130 L, Potassium 3.6, Chloride 101, Carbon Dioxide 18 L, Anion Gap 11.0, BUN 10, Creatinine 0.5, Estimated GFR (MDRD) 153, Glucose 162 H, Calcium 8.8, Total Bilirubin 0.7, AST 44 H, ALT 35, Alkaline Phosphatase 150 H, Total Protein 6.1 L, Albumin 2.7 L, Globulin 3.4, Albumin/Globulin Ratio 0.8 L 01/09/21 06:54: WBC 9.3, RBC 4.36, Hgb 13.3, Hct 38.4, MCV 88.1, MCH 30.5, MCHC 34.6, RDW 13.8, Plt Count 219, MPV 10.8, Neut # (Auto) 6.5, Lymph # (Auto) 2.1, Rutherford # (Auto) 0.6, Eos # (Auto) 0.1, Baso # (Auto) 0.0, Absolute Nucleated RBC 0.02, Nucleated RBC % 0.2 01/09/21 04:35: POC Whole Bld Glucose 119 H 01/09/21 01:10: POC Whole Bld Glucose 127 H 01/08/21 22:31: POC Whole Bld Glucose 103 H 01/08/21 21:15: Blood Type O POSITIVE, Antibody Screen NEGATIVE 01/08/21 21:15: WBC 10.0, RBC 4.65, Hgb 14.0, Hct 41.2, MCV 88.6, MCH 30.1, MCHC 34.0, RDW 14.0, Plt Count 235, MPV 10.9 H, Neut # (Auto) 6.5, Lymph # (Auto) 2.6, Rutherford # (Auto) 0.7, Eos # (Auto) 0.0, Baso # (Auto) 0.0, Absolute Nucleated RBC 0.04, Nucleated RBC % 0.4 Fish Bones: 01/09/21 11:10 01/09/21 11:19 Home Medications and Allergies Active Medications Acetaminophen (Acetaminophen 325 Mg Tablet) 650 mg PO Q4HR PRN PRN Reason: Pain or Fever > 38C (100.4F) Calcium Carbonate/Glycine (Calcium Carbonate Chew 500 Mg Tablet) 500 mg PO BID PRN PRN Reason: Heartburn Last Admin: 01/09/21 01:08 Dose: 500 mg Documented by: Carboprost Tromethamine (Carboprost Tromethamine 250 Mcg/Ml Amp) 250 mcg IM Q15M PRN PRN Reason: Step 4: Hemorrhage protocol Stop: 01/13/21 20:39 Diphenhydramine HCl (Diphenhydramine 25 Mg Capsule) 25 mg PO QPM PRN PRN Reason: Insomnia Diphenhydramine HCl (Diphenhydramine Inj 50 Mg/Ml Vial) 12.5 - 25 mg IVP Q6HR PRN PRN Reason: ITCHING Ephedrine Sulfate (Ephedrine 50 Mg/Ml Vial) 5 mg IVP Q5M PRN PRN Reason: For SBP<100;give until SBP>100 Famotidine (Famotidine 20 Mg Tablet) 20 mg PO BID [facility] Last Admin: 01/09/21 22:26 Dose: Not Given Documented by: Hydralazine HCl (Hydralazine Inj 20 Mg/Ml Vial) 5 - 20 mg IVP Q20M PRN; Prot ocol PRN Reason: SBP >160 or DBP >110 Hydralazine HCl (Hydralazine Inj 20 Mg/Ml Vial) 10 mg IVP .ONCE PRN; Protocol PRN Reason: Step 9 of Labetalol protocol Stop: 01/13/21 23:10 Lactated Ringer's (Lr) 1,000 mls @ 150 mls/hr IV .Q6H40M ELI Last Admin: 01/09/21 20:38 Dose: 50 mls/hr Documented by: Oxytocin/Sodium Chloride (Pitocin/Sodium Chloride) 500 mls @ 999 mls/hr IV PRN PRN; Protocol PRN Reason: POST- HEMORR PREVENTION Stop: 01/13/21 20:39 Tranexamic Acid (Tranexamic 1,000 Mg/100ml-Nacl) 1,000 mg in 100 mls @ 600 mls/hr IV .ONCE PRN PRN Reason: EBL >1200mL and within 3hr Stop: 01/13/21 20:39 Oxytocin/Sodium Chloride (Pitocin/Sodium Chloride) 500 mls @ 1 mls/hr IV TITR ELI; Protocol Last Titration: 01/09/21 01:00 Dose: 8 milliunit/min, 8 mls/hr Documented by: Ropivacaine (Naropin 0.2%) 200 mg in 100 mls @ 0 mls/hr EP PRN PRN; Protocol PRN Reason: PAIN Insulin Aspart (Insulin Aspart 300 Unit/3 Ml Pen) 1 - 5 unit SUBQ 0800,1200,1700,2100 ELI; Protocol Last Admin: 01/09/21 16:18 Dose: 1 unit Documented by: Labetalol HCl (Labetalol 20 Mg/4 Ml Syringe) 20 - 80 mg IVP Q10M PRN; Protocol PRN Reason: SBP >160 or DBP >110 Labetalol HCl (Labetalol 20 Mg/4 Ml Syringe) 40 mg IVP .ONCE PRN; Protocol PRN Reason: Step 9 of hydrALAZine protocol Stop: 01/13/21 23:10 Lidocaine HCl (Lidocaine-Mpf 1% 30 Ml Vial) 30 ml ID .ONCE PRN PRN Reason: PERINEAL REPAIR Stop: 01/13/21 20:39 Methylergonovine Maleate (Methylergonovine 0.2 Mg/Ml Vial) 0.2 mg IM .ONCE PRN PRN Reason: Step 2: Hemorrhage protocol Stop: 01/13/21 20:39 Metoclopramide HCl (Metoclopramide 10 Mg/2 Ml Vial) 5 mg IVP Q6H PRN PRN Reason: Nausea / Vomiting Last Admin: 01/09/21 02:02 Dose: 5 mg Documented by: Metoclopramide HCl (Metoclopramide 10 Mg/2 Ml Vial) 10 mg IVP Q6HR PRN PRN Reason: Nausea / Vomiting Misoprostol (Misoprostol 200 Mcg Tablet) 800 mcg BC .ONCE PRN PRN Reason: Step 3: Hemorrhage protocol Stop: 01/13/21 20:39 Nalbuphine HCl (Nalbuphine 10 Mg/Ml Amp) 2.5 - 5 mg IVP Q4H PRN PRN Reason: ITCHING Naloxone HCl (Naloxone 0.4 Mg/Ml Vial) 0.1 mg IVP Q2M PRN PRN Reason: RR<8 Nifedipine (Nifedipine 10 Mg Capsule) 10 - 20 mg PO Q20M PRN; Protocol PRN Reason: SBP >160 or DBP >110 Ondansetron HCl (Ondansetron 4 Mg/2 Ml Vial) 4 mg IVP Q4H PRN PRN Reason: Nausea / Vomiting Ondansetron HCl (Ondansetron 4 Mg/2 Ml Vial) 4 mg IVP Q6HR PRN PRN Reason: Nausea / Vomiting Oxytocin (Oxytocin 10 Unit/Ml Vial) 10 unit IM .ONCE PRN PRN Reason: Step one: If no IV access Stop: 01/13/21 20:39 Sodium Chloride (Sodium Chloride Flush 0.9% 10 Ml Syringe) 10 ml IVP PRN PRN PRN Reason: NEEDED PER PROVIDER ORDERS Sodium Chloride (Sodium Chloride Flush 0.9% 10 Ml Syringe) 10 ml IVP 0100,0900,1700 ELI Last Admin: 01/09/21 20:38 Dose: Not Given Documented by: Sodium Chloride (Sodium Chloride Flush 0.9% 10 Ml Syringe) 10 ml IVP PRN PRN PRN Reason: NEEDED PER PROVIDER ORDERS Terbutaline Sulfate (Terbutaline 1 Mg/Ml Vial) 0.25 mg SUBQ Q1H PRN PRN Reason: PER PHYSICIAN ORDER Aspirin [Aspirin EC] 81 mg PO DAILY 01/01/21 Pnv No.95/Ferrous Fum/Folic AC [ Caplet] 1 tab PO DAILY 01/01/21 metFORMIN [Glucophage] 500 mg PO BIDWM 01/01/21 Allergies/Adverse Reactions: Allergies Allergy/AdvReac Type Severity Reaction Status Date / Time mushroom Allergy Unknown Verified 01/08/21 20:33 Anes History & Medical History - Anesthetic History Anesthesia Complications: reports: No previous complications Family history of Anesthesia Complications: Denies Family history of Malignant Hyperthermia: Denies (Gestational Diabetes) - Medical History Cardiovascular: reports: Hypertension (Pre-eclampsia), Other (pre-ecclampsia) Pulmonary: reports: Pneumonia Endocrine/Autoimmune: reports: Other (Gestational DM) Smoking Status: Never smoker - Obstetrical History : 1 Parity: 0 Events: reports: Gestational diabetes Complications: reports: Gestational diabetes Exam General: Alert, Oriented x3, Cooperative Dental: WNL Mouth Openin Fingerbreadth Neck Mobility: Normal Mallampati classification: III Thyromental Distance: less than 4 cm Respiratory: Lungs clear Cardiovascular: Regular rate Plan Anesthesia Type: Epidural Consent for Procedure(s) Verified and Reviewed: Yes Code Status: Attempt Resuscitation ASA classification: 3-Severe systemic disease Is this case an emergency?: No
[2021-01-10] MEDS ORDERED: MORPHINE 2 MG/ML CARPUJECT IVP PRN (00:46)
[2021-01-10] MEDS ORDERED: ePHEDrine 50 MG/ML VIAL IVP PRN (00:46)
[2021-01-10] MEDS ORDERED: HYDROmorphone 0.5 MG/0.5 ML SYRINGE IVP PRN (00:46)
[2021-01-10] MEDS ORDERED: ATROPINE ABBOJECT 1 MG/10 ML SYRINGE IVP PRN (00:46)
[2021-01-10] MEDS ORDERED: NALOXONE 0.4 MG/ML VIAL IVP PRN (00:46)
[2021-01-10] MEDS ORDERED: fentaNYL 100 MCG/2 ML VIAL IVP PRN (00:46)
[2021-01-10] MEDS ORDERED: ONDANSETRON 4 MG/2 ML VIAL IVP PRN (00:46)
[2021-01-10] MEDS ORDERED: METOCLOPRAMIDE 10 MG/2 ML VIAL IVP PRN (00:46)
--- NOTE | 2021-01-10 00:46 | ANESTHESIA POST OP EVALUATION ---
Anesthesia Post Eval - Post Anesthesia Eval Vitals: Last Vital Signs Temp 36.9 C 01/09/21 17:37 Pulse 86 01/09/21 07:25 Resp 20 01/09/21 07:25 BP 131/77 H 01/09/21 07:25 Pulse Ox 99 01/09/21 07:25 CV Function Including HR & BP: Stable Pain Control: Satisfactory Nausea & Vomiting: Negative Mental Status: Baseline Respiratory Status: Airway Patent Hydration Status: Satisfactory Anesthesia Complications: None
--- NOTE | 2021-01-10 00:49 | OPERATIVE REPORT ---
Operative Report - General Admit Date: 01/08/21 Procedure Date: 01/09/21 Planned Procedure: Primary low transverse section Pre-Op Diagnosis: 1, 37 weeks Procedure Performed: Primary low transverse section Post Op Diagnosis: Same, Left occiput posterior Apgars 9 and 9 - Procedure Note Primary Surgeon: Hardik Staples MD Secondary Surgeon: Alissa TENORIO Anesthesia Provider: Luisa Gillespie CRNA Anesthesia Technique: Epidural IV Fluids (mL): 1,000 Estimated Blood Loss (mL): 800 Urine Output (mL): 750 Findings: Live female infant vertex presentation Apgars 9 9 left occiput posterior - Other Other Information/Narrative: Patient was taken back to the operating room at which time she was placed in the supine position with a roll under her right hip. At this point she was prepped and draped in usual fashion. Her abdomen had already been wiped as well as her vagina was prepped with Betadine x3. A timeout was performed which concerns were addressed. A Pfannenstiel incision was made carried down through subcutaneous tissue to the fascia. The fascia incised transversely then using both blunt and sharp dissection was freed from the rectus abdominis. The rectus was split along the midline and the incision carried superiorly and inferiorly with Metzenbaum scissors. Care was taken avoid injury to the bowel or bladder. A bladder retractor was placed and a bladder flap was developed using both blunt and sharp dissection. A low transverse uterine incision was accomplished using a #10 blade bandage scissors as well as finger spread technique. The membranes had ruptured and there is clear amniotic fluid. The head of the was noted to be in the left occiput posterior was lifted of the pelvis delivered through the incision. The oral and nasopharynx were bulb suctioned. The remainder of the infant was delivered without difficulty. The infant was allowed to equilibrate for 1 minute and then the cord was doubly clamped and divided and the infant was handed to the nursery team standing by. At this point the placenta was manually delivered and the extra membranes removed with ring forceps. The uterus was wrapped in a moist lap and cleansed in the internal portion with a dry lap. Following assuring that the uterus was cleared of any membranes the incision was closed utilizing a running locking suture of #0 Vicryl with an imbricating layer of #0 Vicryl. The incision suspected areas of reinforcement was utilized using 2-0 Vicryl. There is no evidence of any further bleeding. The uterus tipped forward and the cul-de-sac was suctioned free of any clot. An estimation of blood loss was accomplished at this time. The cul-de-sac was then irrigated with copious amounts of sterile saline following this the uterus was delivered back into the abdominal cavity. The gutters were irrigated and noted be free of any clot. The wound was reinspected and there is no evidence of any active bleeding. The peritoneum was closed utilizing 2-0 Vicryl in a running suture. The rectus was reapproximated utilizing figure eights of 2-0 Vicryl. The rectus muscle was inspected there is no evidence of any further bleeding. At this point the peritoneum the fascia was closed utilizing looped PDS. Subcutaneous tissue was irrigated and then reapproximated utilizing 2-0 Vicryl. The incision itself was closed using 4 follow-up 4-0 Monocryl. The incision was dressed with Mastisol Steri-Strips and a dressing. At this point the uterus was expressed and no further clots were encountered. During the procedure Alissa Swenson CRNA was instrumental in the performing of the procedure. She utilized retraction as well as following suture fundal pressure to assist in the delivery.
[2021-01-10] MEDS ORDERED: LACTATED RINGERS 1,000 ML IV SCH ×2 (01:00)
[2021-01-10] MEDS ORDERED: AZITHROMYCIN INJ 500 MG in SODIUM CHLORIDE 0.9% 250 ML IV ONE (01:11)
[2021-01-10] MEDS ORDERED: HYDROmorphone 2 MG/ML VIAL IVP STA (02:40)
[2021-01-10] MEDS: SODIUM CHLORIDE FLUSH 0.9% 10 ML SYRINGE IVP SCH ×4 (03:24→20:42)
[2021-01-10] MEDS: cefTRIAXone 2 GM in SODIUM CHLORIDE 0.9% MINIBAG 100 ML IV SCH ×2 (03:53→20:41)
[2021-01-10] MEDS: ACETAMINOPHEN 500 MG TABLET PO SCH ×4 (04:12→23:38)
[2021-01-10] MEDS: INSULIN ASPART 300 UNIT/3 ML PEN SUBQ SCH ×4 (04:34→21:01)
[2021-01-10 05:08] LABS: PROTEIN/CREATININE RATIO,URINE 0.4 (<=0.2)
[2021-01-10 06:38] LABS: BASOPHILS % (AUTO) 0.3 %; EOSINOPHILS % (AUTO) 0.2 %; HCT - HEMATOCRIT 32.5 % (37.0-47.0); HGB - HEMOGLOBIN 10.9 g/dL (12.0-16.0); LYMPHOCYTES # (AUTO) 2.3 10^3/uL (1.5-3.5); LYMPHOCYTES % (AUTO) 17.7 %; MEAN CORPUSCULAR HEMOGLOBIN 30.1 pg (27.0-31.0); MEAN CORPUSCULAR HGB CONC 33.5 g/dL (32.0-36.0); MEAN CORPUSCULAR VOLUME 89.8 fL (81.0-99.0); MEAN PLATELET VOLUME 10.8 fL (7.9-10.8); MONOCYTES # (AUTO) 0.6 10^3/uL (0.0-1.0); MONOCYTES % (AUTO) 4.9 %; NEUTROPHILS # (AUTO) 9.9 10^3/uL (1.5-6.6); NEUTROPHILS % (AUTO) 76.4 %; PLT - PLATELET COUNT 196 10^3/uL (130-450); RED BLOOD COUNT 3.62 10^6/uL (4.20-5.40)
[2021-01-10 06:47] LABS: ALBUMIN 2.2 g/dL (3.2-5.5); ALBUMIN/GLOBULIN RATIO 0.8 (1.0-2.2); BILIRUBIN,TOTAL 0.2 mg/dL (0.2-1.0); CALCIUM 8.4 mg/dL (8.5-10.3); CREATININE 0.5 mg/dL (0.4-1.0); POTASSIUM 4.2 mmol/L (3.5-5.0); URIC ACID 5.3 mg/dL (2.6-7.2)
[2021-01-10] MEDS: SIMETHICONE CHEW 80 MG TABLET PO SCH ×3 (09:02→20:41)
[2021-01-10] MEDS: FAMOTIDINE 20 MG TABLET PO SCH ×2 (09:02→20:41)
--- NOTE | 2021-01-10 10:51 | PROVIDER PROGRESS NOTE ---
Subjective - General Admit Date: 01/08/21 Procedure Date: 01/09/21 Post Op Days: 1 Procedure Performed: Primary low transverse section - Review of Systems Wound/Incisions: positive: Dressing dry and intact General: positive: No symptoms (Patient's pain is 7 out of 10. She was on a JOINT CUTTER pump. Will change to oral pain pills.) HEENT: positive: No symptoms Pulmonary: positive: No symptoms Cardiovascular: positive: No symptoms Gastrointestinal: negative: Flatus All Other Systems: positive: Reviewed and negative Objective - Patient Data Reviewed Vital Signs: Yes Vital Signs: Vital Signs x48h Temp Pulse Resp BP Pulse Ox 01/10/21 10:03 36.7 C 93 19 133/90 H 99 01/10/21 09:20 18 01/10/21 07:48 37.1 C 94 19 136/90 H 96 01/10/21 05:31 36.9 C 86 16 132/87 H 98 01/10/21 05:00 88 16 127/83 H 98 01/10/21 04:41 87 16 132/84 H 99 01/10/21 04:07 95 16 126/87 H 97 01/10/21 03:41 89 16 124/78 97 01/10/21 03:20 93 16 131/88 H 97 01/10/21 03:10 92 18 129/83 H 97 01/10/21 03:01 88 18 138/92 H 98 01/10/21 02:52 155/102 H Weight: Weight 01/08/21 01/09/21 01/10/21 23:59 23:59 23:59 Weight (kg) 84.368 kg 84.368 kg Intake & Output: Intake and Output Totals x24h 01/08/21 01/09/21 01/10/21 23:59 23:59 23:59 Intake Total 2116.75 3440 1200 Output Total 400 3425 1550 Balance 1716.75 15 -350 - Lab Results Lab Results: 01/10/21 06:26 01/10/21 06:26 Other Lab Results: Lab Results x24hrs 01/10/21 01/10/21 01/10/21 Range/Units 09:44 07:38 06:26 WBC (4.8-10.8) x10^3/uL RBC (4.20-5.40) 10^6/uL Hgb (12.0-16.0) g/dL Hct (37.0-47.0) % MCV (81.0-99.0) fL MCH (27.0-31.0) pg MCHC (32.0-36.0) g/dL RDW (12.0-15.0) % Plt Count (130-450) 10^3/uL MPV (7.9-10.8) fL Neut # (Auto) (1.5-6.6) 10^3/uL Lymph # (Auto) (1.5-3.5) 10^3/uL [place] # (Auto) (0.0-1.0) 10^3/uL Eos # (Auto) (0.0-0.7) 10^3/uL Baso # (Auto) (0.0-0.1) 10^3/uL Absolute Nucleated RBC x10^3/uL Nucleated RBC % /100WBC Sodium 133 L (135-145) mmol/L Potassium 4.2 (3.5-5.0) mmol/L Chloride 104 (101-111) mmol/L Carbon Dioxide 21 (21-32) mmol/L Anion Gap 8.0 (6-13) BUN 8 (6-20) mg/dL Creatinine 0.5 (0.4-1.0) mg/dL Estimated GFR (MDRD) 153 (>89) Glucose 155 H (70-100) mg/dL POC Whole Bld Glucose 190 H 125 H (70 - 100) mg/dL Uric Acid 5.3 (2.6-7.2) mg/dL Calcium 8.4 L (8.5-10.3) mg/dL Total Bilirubin 0.2 (0.2-1.0) mg/dL AST 39 (10-42) IU/L ALT 30 (10-60) IU/L Alkaline Phosphatase 120 (42-121) IU/L Total Protein 5.0 L (6.7-8.2) g/dL Albumin 2.2 L (3.2-5.5) g/dL Globulin 2.8 (2.1-4.2) g/dL Albumin/Globulin Ratio 0.8 L (1.0-2.2) Urine Creatinine mg/dL Ur Total Protein Timed mg/dL Protein/Creatinin Ratio (<=0.2) Nasal Adenovirus (PCR) Nasal B. parapertussis DNA (PCR) Nasal Coronavir 229E PCR Nasal Coronavir HKU1 PCR Nasal Coronavir NL63 PCR Nasal Coronavir OC43 PCR Nasal Enterovir/Rhinovir PCR Nasal Influenza B PCR Nasal Influenza A PCR Nasal Parainfluen 1 PCR Nasal Parainfluen 2 PCR Nasal Parainfluen 3 PCR Nasal Parainfluen 4 PCR Nasal RSV (PCR) Nasal B.pertussis DNA PCR Nasal C.pneumoniae (PCR) Valentín Human Metapneumo PCR Nasal M.pneumoniae (PCR) Nasal SARS-CoV-2 (PCR) Blood Type Recheck 01/10/21 01/10/21 01/10/21 Range/Units 06:26 04:50 04:23 WBC 13.0 H (4.8-10.8) x10^3/uL RBC 3.62 L (4.20-5.40) 10^6/uL Hgb 10.9 L (12.0-16.0) g/dL Hct 32.5 L (37.0-47.0) % MCV 89.8 (81.0-99.0) fL MCH 30.1 (27.0-31.0) pg MCHC 33.5 (32.0-36.0) g/dL RDW 14.0 (12.0-15.0) % Plt Count 196 (130-450) 10^3/uL MPV 10.8 (7.9-10.8) fL Neut # (Auto) 9.9 H (1.5-6.6) 10^3/uL Lymph # (Auto) 2.3 (1.5-3.5) 10^3/uL [place] # (Auto) 0.6 (0.0-1.0) 10^3/uL Eos # (Auto) 0.0 (0.0-0.7) 10^3/uL Baso # (Auto) 0.0 (0.0-0.1) 10^3/uL Absolute Nucleated RBC 0.00 x10^3/uL Nucleated RBC % 0.0 /100WBC Sodium (135-145) mmol/L Potassium (3.5-5.0) mmol/L Chloride (101-111) mmol/L Carbon Dioxide (21-32) mmol/L Anion Gap (6-13) BUN (6-20) mg/dL Creatinine (0.4-1.0) mg/dL Estimated GFR (MDRD) (>89) Glucose (70-100) mg/dL POC Whole Bld Glucose 167 H (70 - 100) mg/dL Uric Acid (2.6-7.2) mg/dL Calcium (8.5-10.3) mg/dL Total Bilirubin (0.2-1.0) mg/dL AST (10-42) IU/L ALT (10-60) IU/L Alkaline Phosphatase (42-121) IU/L Total Protein (6.7-8.2) g/dL Albumin (3.2-5.5) g/dL Globulin (2.1-4.2) g/dL Albumin/Globulin Ratio (1.0-2.2) Urine Creatinine 63.0 mg/dL Ur Total Protein Timed 27 mg/dL Protein/Creatinin Ratio 0.4 H (<=0.2) Nasal Adenovirus (PCR) Nasal B. parapertussis DNA (PCR) Nasal Coronavir 229E PCR Nasal Coronavir HKU1 PCR Nasal Coronavir NL63 PCR Nasal Coronavir OC43 PCR Nasal Enterovir/Rhinovir PCR Nasal Influenza B PCR Nasal Influenza A PCR Nasal Parainfluen 1 PCR Nasal Parainfluen 2 PCR Nasal Parainfluen 3 PCR Nasal Parainfluen 4 PCR Nasal RSV (PCR) Nasal B.pertussis DNA PCR Nasal C.pneumoniae (PCR) Valentín Human Metapneumo PCR Nasal M.pneumoniae (PCR) Nasal SARS-CoV-2 (PCR) Blood Type Recheck 01/09/21 01/09/21 01/09/21 Range/Units 22:29 22:00 20:00 WBC (4.8-10.8) x10^3/uL RBC (4.20-5.40) 10^6/uL Hgb (12.0-16.0) g/dL Hct (37.0-47.0) % MCV (81.0-99.0) fL MCH (27.0-31.0) pg MCHC (32.0-36.0) g/dL RDW (12.0-15.0) % Plt Count (130-450) 10^3/uL MPV (7.9-10.8) fL Neut # (Auto) (1.5-6.6) 10^3/uL Lymph # (Auto) (1.5-3.5) 10^3/uL [place] # (Auto) (0.0-1.0) 10^3/uL Eos # (Auto) (0.0-0.7) 10^3/uL Baso # (Auto) (0.0-0.1) 10^3/uL Absolute Nucleated RBC x10^3/uL Nucleated RBC % /100WBC Sodium (135-145) mmol/L Potassium (3.5-5.0) mmol/L Chloride (101-111) mmol/L Carbon Dioxide (21-32) mmol/L Anion Gap (6-13) BUN (6-20) mg/dL Creatinine (0.4-1.0) mg/dL Estimated GFR (MDRD) (>89) Glucose (70-100) mg/dL POC Whole Bld Glucose 101 H 125 H (70 - 100) mg/dL Uric Acid (2.6-7.2) mg/dL Calcium (8.5-10.3) mg/dL Total Bilirubin (0.2-1.0) mg/dL AST (10-42) IU/L ALT (10-60) IU/L Alkaline Phosphatase (42-121) IU/L Total Protein (6.7-8.2) g/dL Albumin (3.2-5.5) g/dL Globulin (2.1-4.2) g/dL Albumin/Globulin Ratio (1.0-2.2) Urine Creatinine mg/dL Ur Total Protein Timed mg/dL Protein/Creatinin Ratio (<=0.2) Nasal Adenovirus (PCR) NOT DETECTED Nasal B. parapertussis DNA (PCR) NOT DETECTED Nasal Coronavir 229E PCR NOT DETECTED Nasal Coronavir HKU1 PCR NOT DETECTED Nasal Coronavir NL63 PCR NOT DETECTED Nasal Coronavir OC43 PCR NOT DETECTED Nasal Enterovir/Rhinovir PCR NOT DETECTED Nasal Influenza B PCR NOT DETECTED Nasal Influenza A PCR NOT DETECTED Nasal Parainfluen 1 PCR NOT DETECTED Nasal Parainfluen 2 PCR NOT DETECTED Nasal Parainfluen 3 PCR NOT DETECTED Nasal Parainfluen 4 PCR NOT DETECTED Nasal RSV (PCR) NOT DETECTED Nasal B.pertussis DNA PCR NOT DETECTED Nasal C.pneumoniae (PCR) NOT DETECTED Valentín Human Metapneumo PCR NOT DETECTED Nasal M.pneumoniae (PCR) NOT DETECTED Nasal SARS-CoV-2 (PCR) NOT DETECTED Blood Type Recheck 01/09/21 01/09/21 01/09/21 Range/Units 17:50 16:12 15:51 WBC (4.8-10.8) x10^3/uL RBC (4.20-5.40) 10^6/uL Hgb (12.0-16.0) g/dL Hct (37.0-47.0) % MCV (81.0-99.0) fL MCH (27.0-31.0) pg MCHC (32.0-36.0) g/dL RDW (12.0-15.0) % Plt Count (130-450) 10^3/uL MPV (7.9-10.8) fL Neut # (Auto) (1.5-6.6) 10^3/uL Lymph # (Auto) (1.5-3.5) 10^3/uL [place] # (Auto) (0.0-1.0) 10^3/uL Eos # (Auto) (0.0-0.7) 10^3/uL Baso # (Auto) (0.0-0.1) 10^3/uL Absolute Nucleated RBC x10^3/uL Nucleated RBC % /100WBC Sodium (135-145) mmol/L Potassium (3.5-5.0) mmol/L Chloride (101-111) mmol/L Carbon Dioxide (21-32) mmol/L Anion Gap (6-13) BUN (6-20) mg/dL Creatinine (0.4-1.0) mg/dL Estimated GFR (MDRD) (>89) Glucose (70-100) mg/dL POC Whole Bld Glucose 96 165 H (70 - 100) mg/dL Uric Acid (2.6-7.2) mg/dL Calcium (8.5-10.3) mg/dL Total Bilirubin (0.2-1.0) mg/dL AST (10-42) IU/L ALT (10-60) IU/L Alkaline Phosphatase (42-121) IU/L Total Protein (6.7-8.2) g/dL Albumin (3.2-5.5) g/dL Globulin (2.1-4.2) g/dL Albumin/Globulin Ratio (1.0-2.2) Urine Creatinine 42.7 mg/dL Ur Total Protein Timed 34 mg/dL Protein/Creatinin Ratio 0.8 H (<=0.2) Nasal Adenovirus (PCR) Nasal B. parapertussis DNA (PCR) Nasal Coronavir 229E PCR Nasal Coronavir HKU1 PCR Nasal Coronavir NL63 PCR Nasal Coronavir OC43 PCR Nasal Enterovir/Rhinovir PCR Nasal Influenza B PCR Nasal Influenza A PCR Nasal Parainfluen 1 PCR Nasal Parainfluen 2 PCR Nasal Parainfluen 3 PCR Nasal Parainfluen 4 PCR Nasal RSV (PCR) Nasal B.pertussis DNA PCR Nasal C.pneumoniae (PCR) Valentín Human Metapneumo PCR Nasal M.pneumoniae (PCR) Nasal SARS-CoV-2 (PCR) Blood Type Recheck 01/09/21 01/09/21 01/09/21 Range/Units 13:45 11:19 11:10 WBC 10.2 (4.8-10.8) x10^3/uL RBC 4.40 (4.20-5.40) 10^6/uL Hgb 13.4 (12.0-16.0) g/dL Hct 39.2 (37.0-47.0) % MCV 89.1 (81.0-99.0) fL MCH 30.5 (27.0-31.0) pg MCHC 34.2 (32.0-36.0) g/dL RDW 14.0 (12.0-15.0) % Plt Count 226 (130-450) 10^3/uL MPV 10.6 (7.9-10.8) fL Neut # (Auto) 6.9 H (1.5-6.6) 10^3/uL Lymph # (Auto) 2.4 (1.5-3.5) 10^3/uL [place] # (Auto) 0.7 (0.0-1.0) 10^3/uL Eos # (Auto) 0.0 (0.0-0.7) 10^3/uL Baso # (Auto) 0.0 (0.0-0.1) 10^3/uL Absolute Nucleated RBC 0.02 x10^3/uL Nucleated RBC % 0.2 /100WBC Sodium 133 L (135-145) mmol/L Potassium 3.8 (3.5-5.0) mmol/L Chloride 103 (101-111) mmol/L Carbon Dioxide 20 L (21-32) mmol/L Anion Gap 10.0 (6-13) BUN 11 (6-20) mg/dL Creatinine 0.7 (0.4-1.0) mg/dL Estimated GFR (MDRD) 104 (>89) Glucose 125 H (70-100) mg/dL POC Whole Bld Glucose 214 H (70 - 100) mg/dL Uric Acid 5.5 (2.6-7.2) mg/dL Calcium 9.0 (8.5-10.3) mg/dL Total Bilirubin 0.6 (0.2-1.0) mg/dL AST 44 H (10-42) IU/L ALT 37 (10-60) IU/L Alkaline Phosphatase 155 H (42-121) IU/L Total Protein 6.1 L (6.7-8.2) g/dL Albumin 2.8 L (3.2-5.5) g/dL Globulin 3.3 (2.1-4.2) g/dL Albumin/Globulin Ratio 0.8 L (1.0-2.2) Urine Creatinine mg/dL Ur Total Protein Timed mg/dL Protein/Creatinin Ratio (<=0.2) Nasal Adenovirus (PCR) Nasal B. parapertussis DNA (PCR) Nasal Coronavir 229E PCR Nasal Coronavir HKU1 PCR Nasal Coronavir NL63 PCR Nasal Coronavir OC43 PCR Nasal Enterovir/Rhinovir PCR Nasal Influenza B PCR Nasal Influenza A PCR Nasal Parainfluen 1 PCR Nasal Parainfluen 2 PCR Nasal Parainfluen 3 PCR Nasal Parainfluen 4 PCR Nasal RSV (PCR) Nasal B.pertussis DNA PCR Nasal C.pneumoniae (PCR) Valentín Human Metapneumo PCR Nasal M.pneumoniae (PCR) Nasal SARS-CoV-2 (PCR) Blood Type Recheck 01/09/21 01/09/21 Range/Units 11:00 10:56 WBC (4.8-10.8) x10^3/uL RBC (4.20-5.40) 10^6/uL Hgb (12.0-16.0) g/dL Hct (37.0-47.0) % MCV (81.0-99.0) fL MCH (27.0-31.0) pg MCHC (32.0-36.0) g/dL RDW (12.0-15.0) % Plt Count (130-450) 10^3/uL MPV (7.9-10.8) fL Neut # (Auto) (1.5-6.6) 10^3/uL Lymph # (Auto) (1.5-3.5) 10^3/uL [place] # (Auto) (0.0-1.0) 10^3/uL Eos # (Auto) (0.0-0.7) 10^3/uL Baso # (Auto) (0.0-0.1) 10^3/uL Absolute Nucleated RBC x10^3/uL Nucleated RBC % /100WBC Sodium (135-145) mmol/L Potassium (3.5-5.0) mmol/L Chloride (101-111) mmol/L Carbon Dioxide (21-32) mmol/L Anion Gap (6-13) BUN (6-20) mg/dL Creatinine (0.4-1.0) mg/dL Estimated GFR (MDRD) (>89) Glucose (70-100) mg/dL POC Whole Bld Glucose 131 H (70 - 100) mg/dL Uric Acid (2.6-7.2) mg/dL Calcium (8.5-10.3) mg/dL Total Bilirubin (0.2-1.0) mg/dL AST (10-42) IU/L ALT (10-60) IU/L Alkaline Phosphatase (42-121) IU/L Total Protein (6.7-8.2) g/dL Albumin (3.2-5.5) g/dL Globulin (2.1-4.2) g/dL Albumin/Globulin Ratio (1.0-2.2) Urine Creatinine mg/dL Ur Total Protein Timed mg/dL Protein/Creatinin Ratio (<=0.2) Nasal Adenovirus (PCR) Nasal B. parapertussis DNA (PCR) Nasal Coronavir 229E PCR Nasal Coronavir HKU1 PCR Nasal Coronavir NL63 PCR Nasal Coronavir OC43 PCR Nasal Enterovir/Rhinovir PCR Nasal Influenza B PCR Nasal Influenza A PCR Nasal Parainfluen 1 PCR Nasal Parainfluen 2 PCR Nasal Parainfluen 3 PCR Nasal Parainfluen 4 PCR Nasal RSV (PCR) Nasal B.pertussis DNA PCR Nasal C.pneumoniae (PCR) Valentín Human Metapneumo PCR Nasal M.pneumoniae (PCR) Nasal SARS-CoV-2 (PCR) Blood Type Recheck O POSITIVE - Imaging Results Radiology Imaging: positive: Prelim report reviewed (No evidence of DVT. However there is evidence of a possible previous viral fraction.) - Current Medications Current Medications: Current Medications Generic Name Dose Route Start Last Admin Trade Name Freq PRN Reason Stop Dose Admin Acetaminophen 1,000 mg 01/10/21 01:00 01/10/21 09:02 Acetaminophen 500 Mg Tablet PO 1,000 mg Q8H ELI Administration Calcium Carbonate/Glycine 500 mg 01/08/21 23:12 01/09/21 01:08 Calcium Carbonate Chew 500 Mg Tablet PO 500 mg BID PRN Administration Heartburn Famotidine 20 mg 01/09/21 02:00 01/10/21 09:02 Famotidine 20 Mg Tablet PO 20 mg BID ELI Administration Ceftriaxone Sodium 2 gm/ 100 mls @ 200 mls/hr 01/10/21 02:00 01/10/21 04:50 Sodium Chloride IV Infused HS ELI Infusion Insulin Aspart 1 - 5 unit 01/09/21 09:15 01/10/21 10:09 Insulin Aspart 300 Unit/3 Ml Pen SUBQ 2 unit 0800,1200,1700,2100 ELI Administration Protocol Labetalol HCl 20 - 80 mg 01/08/21 23:08 01/10/21 02:52 Labetalol 20 Mg/4 Ml Syringe IVP 20 mg Q10M PRN Administration SBP >160 or DBP >110 Protocol Simethicone 80 mg 01/10/21 06:00 01/10/21 09:02 Simethicone Chew 80 Mg Tablet PO 80 mg TID ELI Administration Sodium Chloride 10 ml 01/10/21 01:00 01/10/21 03:24 Sodium Chloride Flush 0.9% 10 Ml Syringe IVP Not Given 0100,0900,1700 ELI - Physical Exam Wound/Incisions: positive: Dressing dry and intact General Appearance: positive: Alert, Mild distress Neck: positive: No JVD Respiratory: positive: Chest non-tender, No respiratory distress Cardiovascular: positive: Regular rate & rhythm, No murmur, No gallop Abdomen: positive: Nml bowel sounds, Tenderness (Patient is tenderness over the uterus.), Mass (u-1 Uterus is tender as to be expected.). negative: No distention, Rebound Rectal: positive: Mass Extremities: negative: Calf tenderness, Austen's sign/cords Impression/Plan - Problem List Problem List: Patient is postop . Her hemoglobin has showed a drop to 10 as expec abigail. Her incision is doing well. She does have some tenderness as the uterus. This is more than expected secondary to the inability to use nonsteroidal anti- inflammatories. Her white count is not significantly elevated so I doubt a endometritis.Will monitor temperature as well as white count. Preeclampsia. Patient's blood pressures have been in the normal ranges with the exception of last night when she was 150/100 this was secondary to difficulty with pain control. She received labetalol 20 mg which brought her blood pressures in normal limits. She has a strong family history of her hypertension parents as well as sister. For this reason we will start her on labetalol. Gestational diabetes. Patient was on Metformin during her we have stopped this at this point secondary to her CT. We will be monitoring her fasting as well as 2-hour postprandials. This with insulin for now. We will consider the use of Metformin when she is [address] out from her CT with dye. Patient is having some difficulty with pain control. The inability to use nonsteroidals is exacerbating this. We will change her to oxycodone 5 mg every 4 hours will increase this as needed. Patient has a presumed history of exposure to Covid vaccine virus back in November of this year. She gives a history of having a positive test followed by 2 - tests. Her CTs shows suspicious lesion at the base of her lung. Because of possible mycoplasma she has been placed on a azithromycin as well as Ceftriaxone.
[2021-01-10] MEDS ORDERED: LABETALOL 100 MG TABLET PO SCH (12:00)
[2021-01-10] MEDS: oxyCODONE 5 MG TABLET PO PRN ×4 (12:41→22:08)
[2021-01-10 16:41] LABS: BASOPHILS % (AUTO) 0.2 %; EOSINOPHILS % (AUTO) 0.3 %; HCT - HEMATOCRIT 33.4 % (37.0-47.0); HGB - HEMOGLOBIN 11.4 g/dL (12.0-16.0); LYMPHOCYTES % (AUTO) 15.7 %; MEAN CORPUSCULAR HEMOGLOBIN 30.3 pg (27.0-31.0); MEAN CORPUSCULAR HGB CONC 34.1 g/dL (32.0-36.0); MEAN CORPUSCULAR VOLUME 88.8 fL (81.0-99.0); MEAN PLATELET VOLUME 10.7 fL (7.9-10.8); MONOCYTES # (AUTO) 0.7 10^3/uL (0.0-1.0); MONOCYTES % (AUTO) 5.8 %; NEUTROPHILS # (AUTO) 9.7 10^3/uL (1.5-6.6); NEUTROPHILS % (AUTO) 77.4 %; PLT - PLATELET COUNT 221 10^3/uL (130-450); RED BLOOD COUNT 3.76 10^6/uL (4.20-5.40); RED CELL DISTRIBUTION WIDTH 14.1 % (12.0-15.0); WHITE BLOOD COUNT 12.6 x10^3/uL (4.8-10.8)
[2021-01-10] MEDS ORDERED: AZITHROMYCIN 250 MG TABLET PO STA ×2 (19:59)
--- NOTE | 2021-01-10 20:03 | PROVIDER PROGRESS NOTE ---
Assessment/Plan - Current Meds Current Meds: Current Medications Generic Name Dose Route Start Last Admin Trade Name Marilee PRN Reason Stop Dose Admin Acetaminophen 1,000 mg 01/10/21 01:00 01/10/21 16:38 Acetaminophen 500 Mg Tablet PO 1,000 mg Q8H ELI Administration Calcium Carbonate/Glycine 500 mg 01/08/21 23:12 01/09/21 01:08 Calcium Carbonate Chew 500 Mg Tablet PO 500 mg BID PRN Administration Heartburn Famotidine 20 mg 01/09/21 02:00 01/10/21 09:02 Famotidine 20 Mg Tablet PO 20 mg BID ELI Administration Lactated Ringer's 1,000 mls @ 50 mls/hr 01/10/21 01:00 01/10/21 11:42 Lr IV Not Given .Q20H ELI Ceftriaxone Sodium 2 gm/ 100 mls @ 200 mls/hr 01/10/21 02:00 01/10/21 04:50 Sodium Chloride IV Infused HS ELI Infusion Insulin Aspart 1 - 5 unit 01/09/21 09:15 01/10/21 14:18 Insulin Aspart 300 Unit/3 Ml Pen SUBQ 2 unit 0800,1200,1700,2100 ELI Administration Protocol Labetalol HCl 20 - 80 mg 01/08/21 23:08 01/10/21 02:52 Labetalol 20 Mg/4 Ml Syringe IVP 20 mg Q10M PRN Administration SBP >160 or DBP >110 Protocol Labetalol HCl 100 mg 01/10/21 12:00 01/10/21 12:38 Labetalol 100 Mg Tablet PO 100 mg DAILY ELI Administration Oxycodone HCl 5 - 10 mg 01/10/21 17:21 01/10/21 17:59 Oxycodone 5 Mg Tablet PO 5 mg Q4HR PRN Administration PAIN Simethicone 80 mg 01/10/21 06:00 01/10/21 13:53 Simethicone Chew 80 Mg Tablet PO 80 mg TID ELI Administration Sodium Chloride 10 ml 01/10/21 01:00 01/10/21 11:45 Sodium Chloride Flush 0.9% 10 Ml Syringe IVP Not Given 0100,0900,1700 ELI - Lab Result Fish Bone Diagrams: 01/11/21 04:40 01/11/21 04:40 - Additional Planning My Orders: My Active Orders 01/10/21 02:00 [email or web address] [Rocephin] 2 gm Sodium Chloride 0.9% Minibag [Normal Saline 0.9% Minibag] 100 ml IV HS 01/10/21 19:41 CUL, RESPIRATORY [RM] Stat 01/10/21 19:59 Azithromycin [Zithromax] 500 mg PO ONCE STA 01/11/21 16:00 Azithromycin [Zithromax] 500 mg PO ONCE Subjective - Subjective Patient Reports: Feeling Better (No pleuritic pain, she said), Resting Comfortably Nursing Reports: Other (BP was excessive when pain was not under control, she was started on po Labetolol, 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 She did send a sptm sample which containes oral selena and too many epithelial cells to consider it a good sample.) Objective Vital Signs: Vital Signs - 24 hr 01/10/21 01/10/21 01/10/21 00:25 00:30 00:35 Temperature 36.0 C L 36.0 C L 36.0 C L Heart Rate 79 85 78 Heart Rate [ Brachial] Respiratory 16 16 16 Rate Blood Pressure 140/89 H 140/89 H 120/100 H Blood Pressure [Right Brachial artery] O2 Saturation 98 98 97 01/10/21 01/10/21 01/10/21 00:40 00:45 00:50 Temperature 36.0 C L 36.0 C L 36.0 C L Heart Rate 78 80 76 Heart Rate [ Brachial] Respiratory 16 16 19 Rate Blood Pressure 133/81 H 118/76 109/95 H Blood Pressure [Right Brachial artery] O2 Saturation 98 96 98 01/10/21 01/10/21 01/10/21 01:33 01:40 02:44 Temperature 36.7 C Heart Rate Heart Rate [ 94 82 Brachial] Respiratory 16 16 18 Rate Blood Pressure Blood Pressure 147/96 H 161/101 H [Right Brachial artery] O2 Saturation 01/10/21 01/10/21 01/10/21 02:52 03:01 03:10 Temperature Heart Rate Heart Rate [ 88 92 Brachial] Respiratory 18 18 Rate Blood Pressure Blood Pressure 155/102 H 138/92 H 129/83 H [Right Brachial artery] O2 Saturation 98 97 01/10/21 01/10/21 01/10/21 03:20 03:41 04:07 Temperature Heart Rate Heart Rate [ 93 89 95 Brachial] Respiratory 16 16 16 Rate Blood Pressure Blood Pressure 131/88 H 124/78 126/87 H [Right Brachial artery] O2 Saturation 97 97 97 01/10/21 01/10/21 01/10/21 04:41 05:00 05:31 Temperature 36.9 C Heart Rate Heart Rate [ 87 88 86 Brachial] Respiratory 16 16 16 Rate Blood Pressure Blood Pressure 132/84 H 127/83 H 132/87 H [Right Brachial artery] O2 Saturation 99 98 98 01/10/21 01/10/21 01/10/21 07:48 09:20 10:03 Temperature 37.1 C 36.7 C Heart Rate Heart Rate [ 94 93 Brachial] Respiratory 19 18 19 Rate Blood Pressure Blood Pressure 136/90 H 133/90 H [Right Brachial artery] O2 Saturation 96 99 01/10/21 01/10/21 01/10/21 12:47 16:00 17:09 Temperature 36.1 C L 37.6 C 37.4 C Heart Rate Heart Rate [ 96 93 92 Brachial] Respiratory 18 18 18 Rate Blood Pressure Blood Pressure 134/83 H 141/92 H 138/95 H [Right Brachial artery] O2 Saturation 99 98 100 01/10/21 19:20 Temperature 36.6 C Heart Rate Heart Rate [ 92 Brachial] Respiratory 17 Rate Blood Pressure Blood Pressure 129/80 [Right Brachial artery] O2 Saturation 97 I&O (Last 24 Hrs): Intake and Output Totals x24h 01/08/21 01/09/21 01/10/21 23:59 23:59 23:59 Intake Total 2116.75 3440 1200 Output Total 400 3425 4225 Balance 1716.75 15 -3025 General: Alert, Oriented x3 HEENT: Mucous membr. moist/pink Neck: Supple Neuro: Alert, Non Focal Cardiovascular: Regular rate Respiratory: No respiratory distress Abdomen: Soft Extremities: No edema - Results Results: Laboratory Results WBC 12.6 x10^3/uL (4.8-10.8) H 01/10/21 16:32 RBC 3.76 10^6/uL (4.20-5.40) L 01/10/21 16:32 Hgb 11.4 g/dL (12.0-16.0) L 01/10/21 16:32 Hct 33.4 % (37.0-47.0) L 01/10/21 16:32 MCV 88.8 fL (81.0-99.0) 01/10/21 16:32 MCH 30.3 pg (27.0-31.0) 01/10/21 16:32 MCHC 34.1 g/dL (32.0-36.0) 01/10/21 16:32 RDW 14.1 % (12.0-15.0) 01/10/21 16:32 Plt Count 221 10^3/uL (130-450) 01/10/21 16:32 MPV 10.7 fL (7.9-10.8) 01/10/21 16:32 Neut # (Auto) 9.7 10^3/uL (1.5-6.6) H 01/10/21 16:32 Lymph # (Auto) 2.0 10^3/uL (1.5-3.5) 01/10/21 16:32 [place] # (Auto) 0.7 10^3/uL (0.0-1.0) 01/10/21 16:32 Eos # (Auto) 0.0 10^3/uL (0.0-0.7) 01/10/21 16:32 Baso # (Auto) 0.0 10^3/uL (0.0-0.1) 01/10/21 16:32 Absolute Nucleated RBC 0.00 x10^3/uL 01/10/21 16:32 Nucleated RBC % 0.0 /100WBC 01/10/21 16:32 Sodium 133 mmol/L (135-145) L 01/10/21 06:26 Potassium 4.2 mmol/L (3.5-5.0) 01/10/21 06:26 Chloride 104 mmol/L (101-111) 01/10/21 06:26 Carbon Dioxide 21 mmol/L (21-32) 01/10/21 06:26 Anion Gap 8.0 (6-13) 01/10/21 06:26 BUN 8 mg/dL (6-20) 01/10/21 06:26 Creatinine 0.5 mg/dL (0.4-1.0) 01/10/21 06:26 Estimated GFR (MDRD) 153 (>89) 01/10/21 06:26 Glucose 155 mg/dL (70-100) H 01/10/21 06:26 POC Whole Bld Glucose 208 mg/dL (70 - 100) H 01/10/21 14:14 Uric Acid 5.3 mg/dL (2.6-7.2) 01/10/21 06:26 Calcium 8.4 mg/dL (8.5-10.3) L 01/10/21 06:26 Total Bilirubin 0.2 mg/dL (0.2-1.0) 01/10/21 06:26 AST 39 IU/L (10-42) 01/10/21 06:26 ALT 30 IU/L (10-60) 01/10/21 06:26 Alkaline Phosphatase 120 IU/L (42-121) 01/10/21 06:26 Total Protein 5.0 g/dL (6.7-8.2) L 01/10/21 06:26 Albumin 2.2 g/dL (3.2-5.5) L 01/10/21 06:26 Globulin 2.8 g/dL (2.1-4.2) 01/10/21 06:26 Albumin/Globulin Ratio 0.8 (1.0-2.2) L 01/10/21 06:26 Urine Creatinine 63.0 mg/dL 01/10/21 04:50 Ur Total Protein Timed 27 mg/dL 01/10/21 04:50 Protein/Creatinin Ratio 0.4 (<=0.2) H 01/10/21 04:50 Membranes Rupture POSITIVE (NEGATIVE) A 01/08/21 20:13 Nasal Adenovirus (PCR) NOT DETECTED 01/09/21 22:00 Nasal B. parapertussis DNA (PCR) NOT DETECTED 01/09/21 22:00 Nasal Coronavir 229E PCR NOT DETECTED 01/09/21 22:00 Nasal Coronavir HKU1 PCR NOT DETECTED 01/09/21 22:00 Nasal Coronavir NL63 PCR NOT DETECTED 01/09/21 22:00 Nasal Coronavir OC43 PCR NOT DETECTED 01/09/21 22:00 Nasal Enterovir/Rhinovir PCR NOT DETECTED 01/09/21 22:00 Nasal Influenza B PCR NOT DETECTED 01/09/21 22:00 Nasal Influenza A PCR NOT DETECTED 01/09/21 22:00 Nasal Parainfluen 1 PCR NOT DETECTED 01/09/21 22:00 Nasal Parainfluen 2 PCR NOT DETECTED 01/09/21 22:00 Nasal Parainfluen 3 PCR NOT DETECTED 01/09/21 22:00 Nasal Parainfluen 4 PCR NOT DETECTED 01/09/21 22:00 Nasal RSV (PCR) NOT DETECTED 01/09/21 22:00 Nasal B.pertussis DNA PCR NOT DETECTED 01/09/21 22:00 Nasal C.pneumoniae (PCR) NOT DETECTED 01/09/21 22:00 Valentín Human Metapneumo PCR NOT DETECTED 01/09/21 22:00 Nasal M.pneumoniae (PCR) NOT DETECTED 01/09/21 22:00 Nasal SARS-CoV-2 (PCR) NOT DETECTED 01/09/21 22:00 Blood Type O POSITIVE 01/08/21 21:15 Blood Type Recheck O POSITIVE 01/09/21 11:00 Antibody Screen NEGATIVE 01/08/21 21:15 Imp: Pleuritic chest pain, resolved Community acquired PNA Pre-clampsia causing HTN Hyponatremia Rec: Continue the 2nd dose today, and tomorrow 3rd dose, of Azithromycin 500 mg each day. This provides a complete dose of 1500 mg for atypical PNA treatment. Continue iv Ceftriaxone once daily while here. Considering giving hydration with saline, for the serum Sodium of 133 still, but since she is hypertensive, requiring Labetolol po, a better plan could be amber water restriction. She is getting LR, rate could be decreased. Follow BMP daily.
[2021-01-10] MEDS: DOCUSATE SODIUM 100 MG CAPSULE PO SCH (20:42)
[2021-01-10] MEDS: LABETALOL 100 MG TABLET PO SCH (23:39)
[2021-01-11] MEDS: oxyCODONE 5 MG TABLET PO PRN ×4 (02:21→20:10)
[2021-01-11] MEDS: SODIUM CHLORIDE FLUSH 0.9% 10 ML SYRINGE IVP SCH ×2 (02:51→09:41)
[2021-01-11] MEDS: INSULIN ASPART 300 UNIT/3 ML PEN SUBQ SCH ×3 (03:01→20:10)
[2021-01-11 04:51] LABS: BASOPHILS % (AUTO) 0.2 %; EOSINOPHILS # (AUTO) 0.1 10^3/uL (0.0-0.7); EOSINOPHILS % (AUTO) 0.4 %; HCT - HEMATOCRIT 29.8 % (37.0-47.0); HGB - HEMOGLOBIN 10.3 g/dL (12.0-16.0); LYMPHOCYTES % (AUTO) 14.6 %; MEAN CORPUSCULAR HEMOGLOBIN 30.7 pg (27.0-31.0); MEAN CORPUSCULAR HGB CONC 34.6 g/dL (32.0-36.0); MEAN PLATELET VOLUME 10.1 fL (7.9-10.8); MONOCYTES # (AUTO) 0.8 10^3/uL (0.0-1.0); MONOCYTES % (AUTO) 5.9 %; NEUTROPHILS # (AUTO) 10.4 10^3/uL (1.5-6.6); PLT - PLATELET COUNT 221 10^3/uL (130-450); RED BLOOD COUNT 3.35 10^6/uL (4.20-5.40); RED CELL DISTRIBUTION WIDTH 14.1 % (12.0-15.0); WHITE BLOOD COUNT 13.3 x10^3/uL (4.8-10.8)
[2021-01-11 05:08] LABS: ALBUMIN 2.2 g/dL (3.2-5.5); ALBUMIN/GLOBULIN RATIO 0.8 (1.0-2.2); BILIRUBIN,TOTAL 0.4 mg/dL (0.2-1.0); CALCIUM 8.6 mg/dL (8.5-10.3); CREATININE 0.5 mg/dL (0.4-1.0); POTASSIUM 3.7 mmol/L (3.5-5.0); TOTAL PROTEIN 5.1 g/dL (6.7-8.2); URIC ACID 5.7 mg/dL (2.6-7.2)
[2021-01-11] MEDS: SIMETHICONE CHEW 80 MG TABLET PO SCH ×3 (07:02→22:04)
[2021-01-11] MEDS: ACETAMINOPHEN 500 MG TABLET PO SCH ×3 (07:48→23:42)
[2021-01-11] MEDS: FAMOTIDINE 20 MG TABLET PO SCH ×2 (09:32→20:59)
[2021-01-11] MEDS: LABETALOL 100 MG TABLET PO SCH ×2 (09:32→20:59)
[2021-01-11] MEDS: DOCUSATE SODIUM 100 MG CAPSULE PO SCH ×2 (09:32→20:59)
[2021-01-11] MEDS ORDERED: INSULIN NPH HUMAN 300 UNIT/3 ML VIAL SUBQ SCH (10:45)
--- NOTE | 2021-01-11 10:45 | PROVIDER PROGRESS NOTE ---
Subjective - General Admit Date: 01/08/21 Procedure Date: 01/09/21 Post Op Days: 2 Procedure Performed: Primary low transverse section - Review of Systems Wound/Incisions: positive: Dressing dry and intact General: positive: No symptoms (Patient's pain is 3 out of 10. Pt states that she is having good pain control. Breast milk comming in. Passing flatus but no stool.) HEENT: positive: No symptoms Pulmonary: positive: No symptoms Cardiovascular: positive: No symptoms Gastrointestinal: positive: Flatus All Other Systems: positive: Reviewed and negative Objective - Patient Data Reviewed Vital Signs: Yes Vital Signs: Vital Signs x48h Temp Pulse Resp BP Pulse Ox 01/11/21 09:33 123/64 01/11/21 08:07 36.7 C 90 19 134/84 H 100 01/11/21 06:56 134/80 H 01/11/21 02:57 16 130/78 01/11/21 02:50 37.1 C Weight: Weight 01/09/21 01/10/21 01/11/21 23:59 23:59 23:59 Weight (kg) 84.368 kg Intake & Output: Intake and Output Totals x24h 01/09/21 01/10/21 01/11/21 23:59 23:59 23:59 Intake Total 3440 1800 Output Total 3425 4225 Balance 15 -5201 - Lab Results Lab Results: 01/11/21 04:40 01/11/21 04:40 Other Lab Results: Lab Results x24hrs 01/11/21 01/11/21 01/11/21 Range/Units 04:40 04:40 02:56 WBC 13.3 H (4.8-10.8) x10^3/uL RBC 3.35 L (4.20-5.40) 10^6/uL Hgb 10.3 L (12.0-16.0) g/dL Hct 29.8 L (37.0-47.0) % MCV 89.0 (81.0-99.0) fL MCH 30.7 (27.0-31.0) pg MCHC 34.6 (32.0-36.0) g/dL RDW 14.1 (12.0-15.0) % Plt Count 221 (130-450) 10^3/uL MPV 10.1 (7.9-10.8) fL Neut # (Auto) 10.4 H (1.5-6.6) 10^3/uL Lymph # (Auto) 2.0 (1.5-3.5) 10^3/uL Moca # (Auto) 0.8 (0.0-1.0) 10^3/uL Eos # (Auto) 0.1 (0.0-0.7) 10^3/uL Baso # (Auto) 0.0 (0.0-0.1) 10^3/uL Absolute Nucleated RBC 0.00 x10^3/uL Nucleated RBC % 0.0 /100WBC Sodium 137 (135-145) mmol/L Potassium 3.7 (3.5-5.0) mmol/L Chloride 105 (101-111) mmol/L Carbon Dioxide 24 (21-32) mmol/L Anion Gap 8.0 (6-13) BUN 8 (6-20) mg/dL Creatinine 0.5 (0.4-1.0) mg/dL Estimated GFR (MDRD) 153 (>89) Glucose 163 H (70-100) mg/dL POC Whole Bld Glucose 204 H (70 - 100) mg/dL Uric Acid 5.7 (2.6-7.2) mg/dL Calcium 8.6 (8.5-10.3) mg/dL Total Bilirubin 0.4 (0.2-1.0) mg/dL AST 23 (10-42) IU/L ALT 25 (10-60) IU/L Alkaline Phosphatase 104 (42-121) IU/L Total Protein 5.1 L (6.7-8.2) g/dL Albumin 2.2 L (3.2-5.5) g/dL Globulin 2.9 (2.1-4.2) g/dL Albumin/Globulin Ratio 0.8 L (1.0-2.2) 01/10/21 01/10/21 01/10/21 Range/Units 20:51 16:32 14:14 WBC 12.6 H (4.8-10.8) x10^3/uL RBC 3.76 L (4.20-5.40) 10^6/uL Hgb 11.4 L (12.0-16.0) g/dL Hct 33.4 L (37.0-47.0) % MCV 88.8 (81.0-99.0) fL MCH 30.3 (27.0-31.0) pg MCHC 34.1 (32.0-36.0) g/dL RDW 14.1 (12.0-15.0) % Plt Count 221 (130-450) 10^3/uL MPV 10.7 (7.9-10.8) fL Neut # (Auto) 9.7 H (1.5-6.6) 10^3/uL Lymph # (Auto) 2.0 (1.5-3.5) 10^3/uL Moca # (Auto) 0.7 (0.0-1.0) 10^3/uL Eos # (Auto) 0.0 (0.0-0.7) 10^3/uL Baso # (Auto) 0.0 (0.0-0.1) 10^3/uL Absolute Nucleated RBC 0.00 x10^3/uL Nucleated RBC % 0.0 /100WBC Sodium (135-145) mmol/L Potassium (3.5-5.0) mmol/L Chloride (101-111) mmol/L Carbon Dioxide (21-32) mmol/L Anion Gap (6-13) BUN (6-20) mg/dL Creatinine (0.4-1.0) mg/dL Estimated GFR (MDRD) (>89) Glucose (70-100) mg/dL POC Whole Bld Glucose 225 H 208 H (70 - 100) mg/dL Uric Acid (2.6-7.2) mg/dL Calcium (8.5-10.3) mg/dL Total Bilirubin (0.2-1.0) mg/dL AST (10-42) IU/L ALT (10-60) IU/L Alkaline Phosphatase (42-121) IU/L Total Protein (6.7-8.2) g/dL Albumin (3.2-5.5) g/dL Globulin (2.1-4.2) g/dL Albumin/Globulin Ratio (1.0-2.2) - Current Medications Current Medications: Current Medications Generic Name Dose Route Start Last Admin Trade Name Freq PRN Reason Stop Dose Admin Acetaminophen 1,000 mg 01/10/21 01:00 01/11/21 07:48 Acetaminophen 500 Mg Tablet PO 1,000 mg Q8H ELI Administration Calcium Carbonate/Glycine 500 mg 01/08/21 23:12 01/09/21 01:08 Calcium Carbonate Chew 500 Mg Tablet PO 500 mg BID PRN Administration Heartburn Docusate Sodium 100 mg 01/10/21 16:00 01/11/21 09:32 Docusate Sodium 100 Mg Capsule PO 100 mg BID ELI Administration Famotidine 20 mg 01/09/21 02:00 01/11/21 09:32 Famotidine 20 Mg Tablet PO 20 mg BID ELI Administration Ceftriaxone Sodium 2 gm/ 100 mls @ 200 mls/hr 01/10/21 02:00 01/10/21 21:10 Sodium Chloride IV Infused HS ELI Infusion Insulin Aspart 1 - 5 unit 01/09/21 09:15 01/11/21 03:01 Insulin Aspart 300 Unit/3 Ml Pen SUBQ 2 unit 0800,1200,1700,2100 ELI Administration Protocol Labetalol HCl 20 - 80 mg 01/08/21 23:08 01/10/21 02:52 Labetalol 20 Mg/4 Ml Syringe IVP 20 mg Q10M PRN Administration SBP >160 or DBP >110 Protocol Labetalol HCl 100 mg 01/10/21 23:45 01/11/21 09:32 Labetalol 100 Mg Tablet PO 100 mg BID ELI Administration Ondansetron HCl 4 mg 01/09/21 15:40 01/11/21 01:30 Ondansetron 4 Mg/2 Ml Vial IVP 4 mg Q6HR PRN Administration Nausea / Vomiting Oxycodone HCl 5 - 10 mg 01/10/21 17:21 01/11/21 07:01 Oxycodone 5 Mg Tablet PO 10 mg Q4HR PRN Administration PAIN Simethicone 80 mg 01/10/21 06:00 01/11/21 07:02 Simethicone Chew 80 Mg Tablet PO 80 mg TID ELI Administration Sodium Chloride 10 ml 01/10/21 00:38 01/10/21 20:43 Sodium Chloride Flush 0.9% 10 Ml Syringe IVP 10 ml PRN PRN Administration NEEDED PER PROVIDER ORDERS Sodium Chloride 10 ml 01/10/21 01:00 01/11/21 09:41 Sodium Chloride Flush 0.9% 10 Ml Syringe IVP 10 ml 0100,0900,1700 [facility] Administration - Physical Exam Wound/Incisions: positive: Healing well, No drainage. negative: Erythema General Appearance: positive: No acute distress, Alert Respiratory: positive: Chest non-tender, No respiratory distress, Breath sounds nml Cardiovascular: positive: Regular rate & rhythm, No murmur Abdomen: positive: Tenderness (tender on the lower abdomin over the incision.), Mass (U-2) Back: negative: CVA tenderness (R), CVA tenderness (L) Extremities: negative: Pedal edema, Calf tenderness, Austen's sign/cords Neurologic/Psychiatric: positive: Oriented x3 Impression/Plan - Problem List Problem List: Stop day #2. Status post section for arrest of dilatation and descent. Her uterus is tender as expected. We have not been able utilize nonsteroidals secondary to her preeclampsia. Because of her possible pneumonia. She was placed on azithromycin as well As ceftriaxone. While this is not the usual coverage for endometritis. Patient appears to be improving with temperature as well as pain. Patient's white count is up to 13 at this point we will continue to monitor pain and fever. Patient's blood pressures today are normalizing she is currently on labetalol 100 mg p.o. twice daily. Gestational diabetes. Patient has required around 6 to 8 units of insulin yesterday for the diabetes control. We have not been able to restart her Metformin secondary to her CAT scan and contrast use. For this reason we will start her on insulin until this evening at which time we will restart her Metformin. She will be receiving 2 units of regular with 4 of NPH in the morning and then 2 units of regular in the evening and then restart her Metformin.
[2021-01-11] MEDS: INSULIN REGULAR HUMAN 300 UNIT/3 ML VIAL SUBQ SCH ×2 (11:08→17:11)
[2021-01-11 11:10] LABS: CREATININE,URINE 47.2 mg/dL; PROTEIN/CREATININE RATIO,URINE 0.2 (<=0.2)
[2021-01-11] MEDS ORDERED: AZITHROMYCIN 250 MG TABLET PO SCH (16:00)
[2021-01-11] MEDS: SENNA 8.6 MG TABLET PO SCH (17:43)
[2021-01-11] MEDS: cefTRIAXone 2 GM in SODIUM CHLORIDE 0.9% MINIBAG 100 ML IV SCH (20:56)
[2021-01-11] MEDS ORDERED: metFORMIN 500 MG TABLET PO SCH (21:00)
[2021-01-11] MEDS: metFORMIN 500 MG TABLET PO SCH (21:13)
[2021-01-12] MEDS: oxyCODONE 5 MG TABLET PO PRN (02:09)
[2021-01-12] MEDS: ACETAMINOPHEN 500 MG TABLET PO SCH (08:18)
[2021-01-12] MEDS: FAMOTIDINE 20 MG TABLET PO SCH (08:18)
[2021-01-12] MEDS: metFORMIN 500 MG TABLET PO SCH (08:18)
[2021-01-12] MEDS: SIMETHICONE CHEW 80 MG TABLET PO SCH (09:10)
[2021-01-12] MEDS: LABETALOL 100 MG TABLET PO SCH (09:10)
[2021-01-12] MEDS: DOCUSATE SODIUM 100 MG CAPSULE PO SCH (09:11)
[2021-01-12] MEDS: SENNA 8.6 MG TABLET PO SCH (09:11)
[2021-01-12 10:48] LABS: BASOPHILS % (AUTO) 0.3 %; EOSINOPHILS # (AUTO) 0.2 10^3/uL (0.0-0.7); EOSINOPHILS % (AUTO) 1.6 %; HCT - HEMATOCRIT 30.4 % (37.0-47.0); HGB - HEMOGLOBIN 10.2 g/dL (12.0-16.0); LYMPHOCYTES % (AUTO) 16.9 %; MEAN CORPUSCULAR HEMOGLOBIN 30.2 pg (27.0-31.0); MEAN CORPUSCULAR HGB CONC 33.6 g/dL (32.0-36.0); MEAN CORPUSCULAR VOLUME 89.9 fL (81.0-99.0); MEAN PLATELET VOLUME 9.5 fL (7.9-10.8); MONOCYTES # (AUTO) 0.6 10^3/uL (0.0-1.0); MONOCYTES % (AUTO) 5.4 %; NEUTROPHILS # (AUTO) 8.6 10^3/uL (1.5-6.6); NEUTROPHILS % (AUTO) 74.6 %; NRBC ABSOLUTE COUNT (AUTO) 0.04 x10^3/uL; NUCLEATED RED BLOOD CELLS AUTO 0.3 /100WBC; PLT - PLATELET COUNT 278 10^3/uL (130-450); RED BLOOD COUNT 3.38 10^6/uL (4.20-5.40); RED CELL DISTRIBUTION WIDTH 14.3 % (12.0-15.0); WHITE BLOOD COUNT 11.6 x10^3/uL (4.8-10.8)
--- NOTE | 2021-01-12 11:06 | PROVIDER PROGRESS NOTE ---
Subjective - General Admit Date: 01/08/21 Procedure Date: 01/09/21 Post Op Days: 3 Procedure Performed: Primary low transverse section - Review of Systems Wound/Incisions: positive: Healing well (Patient complains of incisional pain is inspected.), No drainage. negative: Erythema General: positive: No symptoms (Patient's pain is 3 out of 10. Pt states that she is having good pain control. Breast milk comming in. Passing flatus and stool.) HEENT: positive: No symptoms Pulmonary: positive: No symptoms Cardiovascular: positive: No symptoms Gastrointestinal: positive: Flatus All Other Systems: positive: Reviewed and negative Objective - Patient Data Reviewed Vital Signs: Yes Vital Signs: Vital Signs x48h Temp Pulse Resp BP Pulse Ox 01/12/21 08:00 37.6 C 88 16 123/86 H 01/12/21 04:00 36.9 C 94 14 132/77 H 99 Weight: Weight 01/10/21 01/11/21 01/12/21 23:59 23:59 23:59 Weight (kg) 84.368 kg Intake & Output: Intake and Output Totals x24h 01/10/21 01/11/21 01/12/21 23:59 23:59 23:59 Intake Total 1800 Output Total 4225 Balance -2425 - Lab Results Lab Results: 01/12/21 10:35 01/11/21 04:40 Other Lab Results: Lab Results x24hrs 01/12/21 01/12/21 01/11/21 Range/Units 10:35 08:03 20:00 WBC 11.6 H (4.8-10.8) x10^3/uL RBC 3.38 L (4.20-5.40) 10^6/uL Hgb 10.2 L (12.0-16.0) g/dL Hct 30.4 L (37.0-47.0) % MCV 89.9 (81.0-99.0) fL MCH 30.2 (27.0-31.0) pg MCHC 33.6 (32.0-36.0) g/dL RDW 14.3 (12.0-15.0) % Plt Count 278 (130-450) 10^3/uL MPV 9.5 (7.9-10.8) fL Neut # (Auto) 8.6 H (1.5-6.6) 10^3/uL Lymph # (Auto) 2.0 (1.5-3.5) 10^3/uL Crisp # (Auto) 0.6 (0.0-1.0) 10^3/uL Eos # (Auto) 0.2 (0.0-0.7) 10^3/uL Baso # (Auto) 0.0 (0.0-0.1) 10^3/uL Absolute Nucleated RBC 0.04 x10^3/uL Nucleated RBC % 0.3 /100WBC POC Whole Bld Glucose 98 144 H (70 - 100) mg/dL Urine Creatinine mg/dL Ur Total Protein Timed mg/dL Protein/Creatinin Ratio (<=0.2) 01/11/21 01/11/21 01/11/21 Range/Units 14:03 11:04 10:45 WBC (4.8-10.8) x10^3/uL RBC (4.20-5.40) 10^6/uL Hgb (12.0-16.0) g/dL Hct (37.0-47.0) % MCV (81.0-99.0) fL MCH (27.0-31.0) pg MCHC (32.0-36.0) g/dL RDW (12.0-15.0) % Plt Count (130-450) 10^3/uL MPV (7.9-10.8) fL Neut # (Auto) (1.5-6.6) 10^3/uL Lymph # (Auto) (1.5-3.5) 10^3/uL Crisp # (Auto) (0.0-1.0) 10^3/uL Eos # (Auto) (0.0-0.7) 10^3/uL Baso # (Auto) (0.0-0.1) 10^3/uL Absolute Nucleated RBC x10^3/uL Nucleated RBC % /100WBC POC Whole Bld Glucose 177 H 176 H (70 - 100) mg/dL Urine Creatinine 47.2 mg/dL Ur Total Protein Timed 11 mg/dL Protein/Creatinin Ratio 0.2 (<=0.2) - Current Medications Current Medications: Current Medications Generic Name Dose Route Start Last Admin Trade Name Freq PRN Reason Stop Dose Admin Acetaminophen 1,000 mg 01/10/21 01:00 01/12/21 08:18 Acetaminophen 500 Mg Tablet PO 1,000 mg Q8H ELI Administration Calcium Carbonate/Glycine 500 mg 01/08/21 23:12 01/09/21 01:08 Calcium Carbonate Chew 500 Mg Tablet PO 500 mg BID PRN Administration Heartburn Docusate Sodium 100 mg 01/10/21 16:00 01/12/21 09:11 Docusate Sodium 100 Mg Capsule PO 100 mg BID ELI Administration Famotidine 20 mg 01/09/21 02:00 01/12/21 08:18 Famotidine 20 Mg Tablet PO 20 mg BID ELI Administration Ceftriaxone Sodium 2 gm/ 100 mls @ 200 mls/hr 01/10/21 02:00 01/11/21 20:56 Sodium Chloride IV 200 mls/hr HS ELI Administration Insulin Aspart 1 - 5 unit 01/09/21 09:15 01/11/21 20:10 Insulin Aspart 300 Unit/3 Ml Pen SUBQ 1 unit 0800,1200,1700,2100 ELI Administration Protocol Labetalol HCl 20 - 80 mg 01/08/21 23:08 01/10/21 02:52 Labetalol 20 Mg/4 Ml Syringe IVP 20 mg Q10M PRN Administration SBP >160 or DBP >110 Protocol Labetalol HCl 100 mg 01/10/21 23:45 01/12/21 09:10 Labetalol 100 Mg Tablet PO 100 mg BID ELI Administration Metformin HCl 1,000 mg 01/11/21 21:00 01/12/21 08:18 Metformin 500 Mg Tablet PO 1,000 mg BIDWM ELI Administration Ondansetron HCl 4 mg 01/09/21 15:40 01/11/21 01:30 Ondansetron 4 Mg/2 Ml Vial IVP 4 mg Q6HR PRN Administration Nausea / Vomiting Oxycodone HCl 5 - 10 mg 01/10/21 17:21 01/12/21 02:09 Oxycodone 5 Mg Tablet PO 5 mg Q4HR PRN Administration PAIN Senna 8.6 - 17.2 mg 01/11/21 18:00 01/12/21 09:11 Senna 8.6 Mg Tablet PO 8.6 mg DAILY ELI Administration Simethicone 80 mg 01/10/21 06:00 01/12/21 09:10 Simethicone Chew 80 Mg Tablet PO 80 mg TID ELI Administration Sodium Chloride 10 ml 01/10/21 00:38 01/10/21 20:43 Sodium Chloride Flush 0.9% 10 Ml Syringe IVP 10 ml PRN PRN Administration NEEDED PER PROVIDER ORDERS Sodium Chloride 10 ml 01/10/21 01:00 01/11/21 09:41 Sodium Chloride Flush 0.9% 10 Ml Syringe IVP 10 ml 0100,0900,1700 ELI Administration - Physical Exam Wound/Incisions: positive: Healing well, No drainage. negative: Erythema General Appearance: positive: No acute distress, Alert Respiratory: positive: Chest non-tender, No respiratory distress, Breath sounds nml Cardiovascular: positive: Regular rate & rhythm, No murmur, No gallop Abdomen: positive: Tenderness (Tenderness as expected over the incision and uterus.) Rectal: positive: Mass (U- 2.) Back: negative: CVA tenderness (R), CVA tenderness (L)
[2021-01-12 14:13] VITALS: BP 123/88
[2021-01-12] MEDS ORDERED: SENNA 8.6 MG TABLET PO SCH (17:00)
--- NOTE | 2021-01-22 12:21 | DISCHARGE SUMMARY ---
"Discharge Summary Admit Date: 01/08/21 Discharge Date: 01/12/21 Discharging Provider: Hardik Staples MD Code Status: Attempt Resuscitation Condition at Discharge: Stable - DIAGNOSES Admission Diagnoses: 1 25-year-old G1, P0 37 weeks 5 days 2 Spontaneous rupture of membranes 3 gestational diabetes 4 family history of preeclampsia Discharge Diagnoses with Status of Each Condition: One 25-year-old G1, P1 at 37 weeks 5 days number 2. Spontaneous rupture membranes 3. Gestational diabetes 4. History of Covid exposure with positive Covid test 5. Preeclampsia - HPI History of Present Illness: Patient is a 25-year-old female who has a family history of preeclampsia for this reason she was started on baby aspirin on a daily basis during her she developed gestational diabetes. She was started on Metformin 500 mg p.o. twice daily. There was some difficulty with getting an consult for dietitian so this delayed some of her therapy. The morning of admission she spontaneously ruptured her membranes. She presented labor and delivery which time she was 3 cm. Her blood pressures are normal on admission. She was GBS negative. Because of her gestational diabetes she was placed on sliding scale for blood sugar control. - CONSULTS | PROCEDURES Consultations: Internal medicine Procedures: 1 Pitocin augmentation 2 epidural 3 stat CAT scan for chest pain rule out PE 4 for arrest of dilatation and descent. 5 magnesium sulfate - HOSPITAL COURSE Hospital Course: Patient is admitted because of rupture of membranes. Because of her history of gestational diabetes she was placed on sliding scale for blood sugar control. Her blood sugars required 2 shots of insulin during labor. Because of lack of progress Pitocin was initiated she had an epidural placed for labor analgesia. At roughly 7 cm patient developed significant chest pain she had an EKG which showed evidence of right heart strain. For this reason a stat CT was performed following consultation with Shobha. This did not show evidence of any PE. Because of arrest of dilatation she was taken back for which performed without incident. Her post course was significant and that she developed preeclampsia and needed to have magnesium sulfate. Her blood sugars also had some difficulty and she was restarted on her Metformin.At time of CAT scan she was noted to have evidence of what appeared to be exposure to COVID-19 at this point internal medicine started her on a azithromycin as well asCeftriaxone. Patient did have some uterine tenderness but because of the antibiotics she was also ready on she was monitored for response on her white count. - ALLERGIES Allergies/Adverse Reactions: Allergies Allergy/AdvReac Type Severity Reaction Status Date / Time mushroom Allergy Unknown Verified 01/08/21 20:33 - MEDICATIONS Home Medications: Ambulatory Orders Medication Instructions Recorded Confirmed Aspirin [Aspirin EC] 81 mg PO DAILY 01/01/21 01/08/21 Pnv No.95/Ferrous Fum/Folic AC 1 tab PO DAILY 01/01/21 01/08/21 [ [place]] metFORMIN [Glucophage] 500 mg PO BIDWM 01/01/21 01/08/21 - LABS Result Diagrams: 01/12/21 10:35 01/11/21 04:40 - QUALITY (Female Hip Fx Only) Was patient sent home on osteoporosis medication?: Yes - FOLLOW UP Follow Up: 1 week she is also have a BP check when she brings her baby in."
== END 2021-01-12 16:15 | disposition home or self-care (01) | DRG 786 ==
LOC: WFO 19:42 → FBP 19:43 → WFO 20:38 → FBP 20:38
PROVIDERS: ADMIT Obstetrics & Gynecology; ATTEND Obstetrics & Gynecology
PROC: 10D00Z1 Extraction of Products of Conception, Low, Open Approach (ICD-10-PCS; principal; 2021-01-09 07:00)
DX: O42.02 Full-term premature rupture of membranes, onset of labor within 24 hours of rupture (principal); J15.7 Pneumonia due to Mycoplasma pneumoniae; E87.1 Hypo-osmolality and hyponatremia; O99.284 Endocrine, nutritional and metabolic diseases complicating childbirth; O24.425 Gestational diabetes mellitus in childbirth, controlled by oral hypoglycemic drugs; Z37.0 Single live birth; O14.94 Unspecified pre-eclampsia, complicating childbirth; O99.52 Diseases of the respiratory system complicating childbirth; O64.0XX0 Obstructed labor due to incomplete rotation of fetal head, not applicable or unspecified; O62.1 Secondary uterine inertia; Z3A.37 37 weeks gestation of pregnancy; Z86.16 Personal history of COVID-19; Z82.49 Family history of ischemic heart disease and other diseases of the circulatory system; Z79.82 Long term (current) use of aspirin
CPT/HCPCS: 0202U; 36415; 71275; 80053; 82570; 84112; 84156; 84550; 85025; 86769; 86850; 86900; 86901; 87205; 93005; 99213; A9270; J1170; J1815; J2210; J2765; J7120; Q9967; 80048; 87070; 99214

== ENCOUNTER 2021-02-19 15:45 | Outpatient (CLI) | payer OTHER ==
[2021-02-19 20:33] LABS: CHLAMYDIA TRACHOMATIS DNA NEGATIVE (NEGATIVE); NEISSERIA GONORRHOEAE DNA NEGATIVE (NEGATIVE); TRICHOMONAS VAGINALIS DNA NEGATIVE (NEGATIVE)
== END 2021-02-19 23:59 | disposition home or self-care (01) ==
LOC: LAB.WC 15:45
PROVIDERS: ATTEND Obstetrics & Gynecology
DX: Z11.3 Encounter for screening for infections with a predominantly sexual mode of transmission (principal)
CPT/HCPCS: 87491; 87591; 87661